=== PATIENT | female | born 1975 | race Caucasian/White ===

== ENCOUNTER → 2018-04-15 10:58 | Outpatient (CLI) | payer OTHER, SELFPAY ==
--- NOTE | 2018-04-15 | DI.RAD.S_ITS ---
PROCEDURE: XR WRIST LT MIN 3V INDICATIONS: OTHER CLOSED FRACTURE OF DISTAL END OF LEFT RADIUS TECHNIQUE: 3 views of the wrist were acquired. COMPARISON: None. FINDINGS: Bones: No dislocations. No suspicious bony lesions. There is a comminuted dorsally angulated intra-articular fracture involving the distal radius, partially obscured by overlying splint material, and there may be an ulnar styloid process base fracture Scaphoid view: Not obtained, and the scaphoid is partially obscured by cast material Soft tissues: No suspicious soft tissue calcifications. IMPRESSION: Comminuted intra-articular impacted and dorsally angulated distal radius fracture. Probable ulnar styloid process base fracture partially obscured. Dictated by: Raymon Hunter M.D. on 04/15/2018 at 12:53 Approved by: Raymon Hunter M.D. on 04/15/2018 at 12:57
== END ==
PROVIDERS: Family Provider Family Medicine; PCP Family Medicine; Visit Provider Orthopaedic Surgery
DX: S52.572A Other intraarticular fracture of lower end of left radius, initial encounter for closed fracture (principal)
CPT/HCPCS: 73110

== ENCOUNTER → 2018-10-17 16:49 | Outpatient (CLI) | payer OTHER, MEDICAID, SELFPAY ==
[2018-10-17 17:53] LABS: Add Manual Diff / Slide Review NO; Basophils Absolute Auto 100 /uL (0-100); Basophils Percent Auto 0.7 % (0-2); Eosinophils Absolute Auto 100 /uL (0-450); Eosinophils Percent Auto 1.3 % (2-4); Hematocrit 42.6 % (36-46); Hemoglobin 14.3 g/dL (12.0-16.0); Lymphocytes Absolute Auto 3100 /uL (1100-4500); Lymphocytes Percent Auto 41.1 % (25-40); Mean Corpuscular HGB Conc 33.5 % (30-36); Mean Corpuscular Volume 89.5 fL (80-100); Monocytes Absolute Auto 600 /uL (0-900); Monocytes Percent Auto 8.1 % (3-14); Neutrophils Absolute Auto 3700 /uL (1500-7000); Neutrophils Percent Auto 48.8 % (50-75); Platelet Count 327 X10^3/uL (150-400); Red Blood Cell Count 4.75 X10^6/uL (4.0-5.2); Red Cell Distribution Width 13.1 % (11.6-14.8); White Blood Cell Count 7.6 X10^3/uL (4.5-11.0)
[2018-10-17 18:33] LABS: Alanine Aminotransferase 40 IU/L (9-52); Albumin 4.8 g/dL (3.5-5.0); Albumin Globulin Ratio 1.7 (1.0-2.8); Alkaline Phosphatase 82 U/L (38-126); Aspartate Aminotransferase 30 IU/L (14-36); Bilirubin Total 0.8 mg/dL (0.2-1.3); Blood Urea Nitrogen 19 mg/dL (7-17); Calcium 9.9 mg/dL (8.4-10.2); Carbon Dioxide 28 mmol/L (22-32); Chloride 103 mmol/L (98-107); Estimated Glomerular Filt Rate > 60.0 mL/min (>60); Globulin 2.9 g/dL (1.7-4.1); Glucose 83 mg/dL (70-100); HEMOLYSIS < 15 (0-50); Potassium 4.4 mmol/L (3.4-5.1); Sodium 140 mmol/L (137-145); Total Protein 7.7 g/dL (6.3-8.2)
[2018-10-17 19:04] LABS: Erythrocyte Sedimentation Rate 8 MM/HR (0-20); Thyroid Stimulating Hormone 1.74 uIU/mL (0.47-4.68)
== END ==
PROVIDERS: Family Provider Family Medicine; PCP Family Medicine; Visit Provider Family Medicine
DX: G43.009 Migraine without aura, not intractable, without status migrainosus (principal); M79.10 Myalgia, unspecified site; I10 Essential (primary) hypertension; R42 Dizziness and giddiness
CPT/HCPCS: 36415; 80053; 84443; 85025; 85651

== ENCOUNTER 2018-11-27 14:55 | Emergency (ER) | payer OTHER, MEDICAID, SELFPAY ==
[2018-11-27 15:01] VITALS: BP 127/85; PULSE 78; RESP 20; TEMP 36.2; O2SAT 97; BMI 34.5
--- NOTE | 2018-11-27 15:30 | DI.RAD.S_ITS ---
PROCEDURE: XR KUB INDICATIONS: abd pain, nausea / vomiting. TECHNIQUE: One view of the abdomen acquired. COMPARISON: None. FINDINGS: Surgical changes and devices: Surgical clips in the gallbladder fossa.. Bowel: There is a paucity of small bowel gas. Normal quantity of solid stool is present in the colon. Soft tissues: No suspicious abdominal calcifications. Visualized solid organ contours appear normal in size. Bones: No suspicious bony lesions. IMPRESSION: Lack of small bowel gas. No other changes to suggest acute obstruction. Cholecystectomy. Dictated by: Deepthi Garcia M.D. on 11/27/2018 at 15:47 Approved by: Deepthi Garcia M.D. on 11/27/2018 at 15:48
[2018-11-27] MEDS: SODIUM CHLORIDE 0.9% 1,000 ML 1000 ML IV ×2 (16:02→18:08)
[2018-11-27] MEDS: ONDANSETRON 4 MG/2 ML INJ IV (16:02)
[2018-11-27 16:07] LABS: Add Manual Diff / Slide Review NO; Basophils Absolute Auto 100 /uL (0-100); Basophils Percent Auto 1.1 % (0-2); Eosinophils Absolute Auto 100 /uL (0-450); Eosinophils Percent Auto 1.1 % (2-4); Hematocrit 39.9 % (36-46); Hemoglobin 13.6 g/dL (12.0-16.0); Lymphocytes Absolute Auto 3100 /uL (1100-4500); Lymphocytes Percent Auto 28.6 % (25-40); Mean Corpuscular HGB Conc 34.2 % (30-36); Mean Corpuscular Hemoglobin 30.3 PG (26-34); Mean Corpuscular Volume 88.7 fL (80-100); Monocytes Absolute Auto 700 /uL (0-900); Monocytes Percent Auto 6.6 % (3-14); Neutrophils Absolute Auto 6800 /uL (1500-7000); Neutrophils Percent Auto 62.6 % (50-75); Platelet Count 290 X10^3/uL (150-400); Red Cell Distribution Width 13.4 % (11.6-14.8); White Blood Cell Count 10.9 X10^3/uL (4.5-11.0)
[2018-11-27 16:15] LABS: INR 0.9 (0.9-1.3); Prothrombin Time 9.7 SECONDS (10.1-12.7)
[2018-11-27 16:17] LABS: PTT Partial Thromboplastin Tim 34 SECONDS (26.4-36.2)
[2018-11-27 16:19] LABS: Alanine Aminotransferase 29 IU/L (9-52); Albumin 4.4 g/dL (3.5-5.0); Albumin Globulin Ratio 1.4 (1.0-2.8); Alkaline Phosphatase 71 U/L (38-126); Aspartate Aminotransferase 24 IU/L (14-36); Bilirubin Total 0.4 mg/dL (0.2-1.3); Blood Urea Nitrogen 14 mg/dL (7-17); Calcium 8.8 mg/dL (8.4-10.2); Carbon Dioxide 22 mmol/L (22-32); Chloride 107 mmol/L (98-107); Estimated Glomerular Filt Rate > 60.0 mL/min (>60); Globulin 3.1 g/dL (1.7-4.1); Glucose 82 mg/dL (70-100); HEMOLYSIS < 15 (0-50); Lipase 167 U/L (23-300); Potassium 4.4 mmol/L (3.4-5.1); Sodium 140 mmol/L (137-145); Total Protein 7.5 g/dL (6.3-8.2)
[2018-11-27 17:12] VITALS: BP 130/79; PULSE 70; O2SAT 96
[2018-11-27 17:45] LABS: Amorphous Sediment Urine 1+; Bacteria Urine Occasional (0-1); Culture Indicated Urine Cult Not Indicated; Mucus Urine 1+ (Negative); RBC Urine 1-5/HPF (0-5/HPF); Squamous Epithelial Cell Urine 5-10 /HPF (0-5/HPF); WBC Urine 1-5/HPF (0-5/HPF)
--- NOTE | 2018-11-27 17:52 | DI.CT.S_ITS ---
PROCEDURE: CT ABDOMEN PELVIS W CON INDICATIONS: RLQ abdominal pain TECHNIQUE: After the administration of intravenous contrast, 5 mm thick sections acquired from the diaphragm to the symphysis. 5 mm coronal and sagittal reformats were acquired. For radiation dose reduction, the following was used: automated exposure control, adjustment of mA and/or kV according to patient size. COMPARISON: [facility], CT, KIDNEY/ URETER/BLADDER, 01/31/2017, 14:21. FINDINGS: Image quality: Excellent. ABDOMEN: Lung bases: There are small pulmonary nodules in the lung bases, including a 2 mm nodule in the right lower lobe on series 5 image 5 and a 3 mm nodule in the left lower lobe on image 8. These appear stable compared to the prior study. Heart size is normal. There is a small hiatal hernia. Solid organs: There is mild heterogeneous attenuation of the liver consistent with fatty infiltration. The gallbladder is surgically absent. Biliary system is non dilated. Pancreas enhances normally. Spleen is normal in size and enhancement. No adrenal nodules. Kidneys demonstrate normal size and enhancement, without hydronephrosis. Peritoneum and bowel: Bowel loops demonstrate normal wall thickness and caliber. The appendix is normal in appearance. There is colonic diverticulosis without acute diverticulitis. There is a small amount of free fluid in the pelvis which appears within physiologic limits. Nodes and vessels: No retroperitoneal or mesenteric adenopathy by size criteria. Aorta and inferior vena cava are normal in size. Miscellaneous: No ventral hernias. PELVIS: Genitourinary: Bladder wall thickness is normal. The ovaries appear within normal size limits. There is a small peripherally enhancing cyst in the right ovary measuring approximately 1.2 cm likely representing a corpus luteal cyst. The uterus is surgically absent. Miscellaneous: No inguinal hernias or adenopathy. Bones: No suspicious bony lesions. No vertebral body compression fractures. IMPRESSION: 1. No evidence of appendicitis. 2. Colonic diverticulosis without acute diverticulitis. 3. Small peripherally enhancing structure in the right ovary likely representing a corpus luteal cyst. Dictated by: Jose A Tsang M.D. on 11/27/2018 at 18:53 Approved by: Jose A Tsang M.D. on 11/27/2018 at 19:01
--- NOTE | 2018-11-27 17:55 | ED.ABDPAIN ---
HPI - Abdominal Pain General Chief Complaint: Abdominal Pain Stated Complaint: nauseous x 5 days Time Seen by Provider: 11/27/18 17:21 Source: patient Mode of arrival: ambulatory Limitations: no limitations History of Present Illness HPI narrative: A 43-year-old female comes to the emergency department with complaint of abdominal pain, nausea and vomiting intermittently. Patient states she has also been constipated. She did have a bowel movement today it has been sort of small and whitish in color. Patient states that she has not had any fevers or chills. She describes pain all over but mostly on the left side. She has had some urinary frequency and dysuria. She denies any similar symptoms in the past. She went for follow-up for orthopedic care today and was told she should come get all her symptoms checked out. Patient has had a cholecystectomy as well as hysterectomy. She is she has also had surgery on her left wrist. She takes sertraline and gabapentin daily as well as lorazepam as needed. Related Data Home Medications Medication Instructions Recorded Confirmed gabapentin [Neurontin] 600 mg PO BID #0 12/10/12 11/27/18 albuterol sulfate 1 inh INHALATION PRN PRN 11/27/18 11/27/18 lorazepam 0.5 mg PO BID PRN 11/27/18 11/27/18 naproxen 500 mg PO DAILY PRN 11/27/18 11/27/18 sertraline 25 mg PO QPM 11/27/18 11/27/18 sumatriptan succinate 25 mg PO PRN PRN MDD 50 mg 11/27/18 11/27/18 Previous Rx's Medication Instructions Recorded ondansetron HCl [Zofran] 4 mg PO QID PRN #10 tab 11/27/18 Allergies Allergy/AdvReac Type Severity Reaction Status Date / Time morphine [MORPHINE] Allergy Unknown Verified 11/27/18 16:02 Review of Systems Review of Systems ROS Unobtainable: All systems reviewed & are unremarkable except as noted in HPI and below Constitutional Denies chills, Denies fever(s), Denies lethargy and Denies weakness Cardiovascular Denies chest pain, Denies diaphoresis, Denies syncope, Denies lightheadedness, Denies dyspnea and Denies dyspnea on exertion Respiratory Denies change in phlegm color, Denies chest congestion, Denies cough, Denies dyspnea, Denies dyspnea on exertion and Denies wheezing Gastrointestinal Gastrointestinal: Reports abdominal pain, Denies melena, Denies hematochezia, Denies change in bowel habits, Denies diarrhea, Reports nausea, Reports vomiting and Reports other (whitish stool) Genitourinary Denies abnormal vaginal bleeding, Denies hematuria, Reports urinary frequency, Reports dysuria, Denies flank pain, Denies urinary incontinence, Reports urinary urgency, Denies vaginal discharge and Denies vaginal odor Musculoskeletal Denies back pain Integumentary/Breasts Denies rash Neurologic Denies syncope and Denies weakness Allergic/Immunologic Denies wheezing [facility] Medical History (Updated 11/27/18 @ 19:18 by Stephanie Jimenez DO) H/O: hysterectomy (Chronic) Surgical History (Updated 11/27/18 @ 18:33 by Stephanie Jimenez DO) Hx of cholecystectomy (Chronic) Status post vaginal hysterectomy Social History (Updated 11/27/18 @ 18:33 by Stephanie Jimenez DO) alcohol intake: current substance use type: marijuana Social History (Updated 11/27/18 @ 18:33 by Stephanie Jimenez DO) alcohol intake: current substance use type: marijuana Exam Narrative Exam Narrative: GENERAL: Alert and oriented x three, moderately obese, well-appearing female in mild distress. HEENT: Head normocephalic, atraumatic, EOMI, pupils reactive, face symmetric, moist mucous membranes NECK: Supple, full range of motion CARDIOVASCULAR: Regular rate and rhythm without murmurs, rubs or gallops. RESPIRATORY: Breath sounds equal bilaterally, no wheezes rales or rhonchi. ABDOMEN: Soft, generalized tenderness greatest at the right lower quadrant. Normoactive bowel sounds all 4 quadrants. No guarding, positive rebound, no rigidity, no mass. : No CVA tenderness EXTREMITIES: Normal range of motion, no clubbing or edema. Neurovascularly intact NEUROLOGICAL: Cranial nerves II through XII grossly intact. Moving all extremities SKIN: Warm, dry, no petechiae, no rashes or lesions. Initial Vital Signs Initial Vital Signs: Vital Signs Temperature 97.2 F L 11/27/18 15:01 Pulse Rate 78 11/27/18 15:01 Respiratory Rate 20 11/27/18 15:01 Blood Pressure 127/85 11/27/18 15:01 Pulse Oximetry 97 11/27/18 15:01 Course Orders Ordered: ED Orders 11/27/18 15:30 XR KUB Stat 11/27/18 15:55 Complete Blood Count AUTO DIFF Stat Comprehensive Metabolic Panel Stat Lipase Stat Partial Thromboplastin Time Stat Prothrombin Time INR Stat 11/27/18 17:00 Urine Microscopic Stat 11/27/18 17:52 CT abdomen pelvis w con Stat Discontinued Medications Sodium Chloride (Normal Saline 0.9%) 1,000 mls @ 1,000 mls/hr IV BOLUS ONE Stop: 11/27/18 16:29 Last Infusion: 11/27/18 17:05 Dose: 0 mls/hr Admin: 11/27/18 16:02 Dose: 1,000 mls/hr Sodium Chloride (Normal Saline 0.9%) 1,000 mls @ 1,000 mls/hr IV BOLUS ONE Stop: 11/27/18 18:51 Last Admin: 11/27/18 18:08 Dose: 1,000 mls/hr Ketorolac Tromethamine (Toradol) 30 mg IV NOW ONE Stop: 11/27/18 17:53 Last Admin: 11/27/18 18:08 Dose: 30 mg Ondansetron HCl (Zofran) 4 mg IV NOW ONE Stop: 11/27/18 15:27 Last Admin: 11/27/18 16:02 Dose: 4 mg Vital Signs - 8 hr 11/27/18 15:01 11/27/18 17:12 Temperature 97.2 F L Pulse Rate 78 70 Respiratory Rate 20 Blood Pressure 127/85 Blood Pressure [Right Wrist] 130/79 Pulse Oximetry 97 96 MDM - Abdominal Pain Lab Data Attestation: I reviewed the patient's lab results. Result diagrams: 11/27/18 15:55 11/27/18 15:55 Lab Results 11/27/18 11/27/18 11/27/18 Range/Units 15:55 15:55 15:55 WBC 10.9 (4.5-11.0) X10^3/uL RBC 4.50 (4.0-5.2) X10^6/uL Hgb 13.6 (12.0-16.0) g/dL Hct 39.9 (36-46) % MCV 88.7 (80-100) fL MCH 30.3 (26-34) PG MCHC 34.2 (30-36) % RDW 13.4 (11.6-14.8) % Plt Count 290 (150-400) X10^3/uL Neut % (Auto) 62.6 (50-75) % Lymph % (Auto) 28.6 (25-40) % [place] % (Auto) 6.6 (3-14) % Eos % (Auto) 1.1 L (2-4) % Baso % (Auto) 1.1 (0-2) % Neut # (Auto) 6800 (9826-6436) /uL Lymph # (Auto) 3100 (1219-0237) /uL [place] # (Auto) 700 (0-900) /uL Eos # (Auto) 100 (0-450) /uL Baso # (Auto) 100 (0-100) /uL PT 9.7 L (10.1-12.7) SECONDS INR 0.9 (0.9-1.3) APTT 34 (26.4-36.2) SECONDS Sodium 140 (137-145) mmol/L Potassium 4.4 (3.4-5.1) mmol/L Chloride 107 (98-107) mmol/L Carbon Dioxide 22 (22-32) mmol/L BUN 14 (7-17) mg/dL Creatinine 0.70 (0.52-1.04) mg/dL Estimated GFR > 60.0 (>60) mL/min BUN/Creatinine Ratio 20.0 (6-22) Glucose 82 (70-100) mg/dL Calcium 8.8 (8.4-10.2) mg/dL Total Bilirubin 0.4 (0.2-1.3) mg/dL AST 24 (14-36) IU/L ALT 29 (9-52) IU/L Alkaline Phosphatase 71 (38-126) U/L Total Protein 7.5 (6.3-8.2) g/dL Albumin 4.4 (3.5-5.0) g/dL Globulin 3.1 (1.7-4.1) g/dL Albumin/Globulin Ratio 1.4 (1.0-2.8) Lipase 167 (23-300) U/L Urine RBC (0-5/HPF) Urine WBC (0-5/HPF) Ur Squamous Epith Cells (0-5/HPF) Amorphous Sediment Urine Bacteria (None) Urine Mucus (Negative) Ur Culture Indicated? 11/27/18 Range/Units 17:00 WBC (4.5-11.0) X10^3/uL RBC (4.0-5.2) X10^6/uL Hgb (12.0-16.0) g/dL Hct (36-46) % MCV (80-100) fL MCH (26-34) PG MCHC (30-36) % RDW (11.6-14.8) % Plt Count (150-400) X10^3/uL Neut % (Auto) (50-75) % Lymph % (Auto) (25-40) % [place] % (Auto) (3-14) % Eos % (Auto) (2-4) % Baso % (Auto) (0-2) % Neut # (Auto) (4977-4361) /uL Lymph # (Auto) (0026-0692) /uL [place] # (Auto) (0-900) /uL Eos # (Auto) (0-450) /uL Baso # (Auto) (0-100) /uL PT (10.1-12.7) SECONDS INR (0.9-1.3) APTT (26.4-36.2) SECONDS Sodium (137-145) mmol/L Potassium (3.4-5.1) mmol/L Chloride (98-107) mmol/L Carbon Dioxide (22-32) mmol/L BUN (7-17) mg/dL Creatinine (0.52-1.04) mg/dL Estimated GFR (>60) mL/min BUN/Creatinine Ratio (6-22) Glucose (70-100) mg/dL Calcium (8.4-10.2) mg/dL Total Bilirubin (0.2-1.3) mg/dL AST (14-36) IU/L ALT (9-52) IU/L Alkaline Phosphatase (38-126) U/L Total Protein (6.3-8.2) g/dL Albumin (3.5-5.0) g/dL Globulin (1.7-4.1) g/dL Albumin/Globulin Ratio (1.0-2.8) Lipase (23-300) U/L Urine RBC 1-5/hpf (0-5/HPF) Urine WBC 1-5/hpf (0-5/HPF) Ur Squamous Epith Cells 5-10 /hpf H (0-5/HPF) Amorphous Sediment 1+ Urine Bacteria Occasional (0-1) (None) Urine Mucus 1+ H (Negative) Ur Culture Indicated? Cult not indicated Point of care testing: Urine Dip Bedside Urine Glucose Negative Bedside Urine Bilirubin - Negative Bedside Urine Ketone - Negative Urine Specific Oak[place] 1.025 Bedside Urine Occult Blood +++ Bedside Urine pH 6.0 Bedside Urine Protein - Negative Bedside Urine Urobilinogen - Negative Bedside Urine Nitrite - Negative Bedside Urine Leukocytes - Negative Esterase Imaging Data CT scan - abdomen: Radiologist's impression: [address] [address] [address] Scan Report Signed Patient: Tracy Mancini OMR#: [id number] : 1975Acct:[id number] Age/Sex: 43 / FDate of Service: 11/27/18 Loc: ED Accession Number: [id number] Procedure: CT abdomen pelvis w con Ordering Provider: Stephanie Jimenez D.O. PROCEDURE: CT ABDOMEN PELVIS W CON INDICATIONS: RLQ abdominal pain TECHNIQUE: After the administration of intravenous contrast, 5 mm thick sections acquired from the diaphragm to the symphysis. 5 mm coronal and sagittal reformats were acquired. For radiation dose reduction, the following was used: automated exposure control, adjustment of mA and/or kV according to patient size. COMPARISON: [facility], CT, KIDNEY/ URETER/BLADDER, 01/31/2017, 14:21. FINDINGS: Image quality: Excellent. ABDOMEN: Lung bases: There are small pulmonary nodules in the lung bases, including a 2 mm nodule in the right lower lobe on series 5 image 5 and a 3 mm nodule in the left lower lobe on image 8. These appear stable compared to the prior study. Heart size is normal. There is a small hiatal hernia. Solid organs: There is mild heterogeneous attenuation of the liver consistent with fatty infiltration. The gallbladder is surgically absent. Biliary system is non dilated. Pancreas enhances normally. Spleen is normal in size and enhancement. No adrenal nodules. Kidneys demonstrate normal size and enhancement, without hydronephrosis. Peritoneum and bowel: Bowel loops demonstrate normal wall thickness and caliber. The appendix is normal in appearance. There is colonic diverticulosis without acute diverticulitis. There is a small amount of free fluid in the pelvis which appears within physiologic limits. Nodes and vessels: No retroperitoneal or mesenteric adenopathy by size criteria. Aorta and inferior vena cava are normal in size. Miscellaneous: No ventral hernias. PELVIS: Genitourinary: Bladder wall thickness is normal. The ovaries appear within normal size limits. There is a small peripherally enhancing cyst in the right ovary measuring approximately 1.2 cm likely representing a corpus luteal cyst. The uterus is surgically absent. Miscellaneous: No inguinal hernias or adenopathy. Bones: No suspicious bony lesions. No vertebral body compression fractures. IMPRESSION: 1. No evidence of appendicitis. 2. Colonic diverticulosis without acute diverticulitis. 3. Small peripherally enhancing structure in the right ovary likely representing a corpus luteal cyst. Dictated by: Jose A Tsang M.D. on 11/27/2018 at 18:53 Approved by: Jose A Tsang M.D. on 11/27/2018 at 19:01 KUB xray: Radiologist's impression: [address] [address] XRay Report Signed Patient: Tracy Mancini OMR#: [id number] : 1975Acct:[id number] Age/Sex: 43 / FDate of Service: 11/27/18 Loc: ED Accession Number: [id number] Procedure: XR KUB Ordering Provider: Stephanie Jimenez D.O. PROCEDURE: XR KUB INDICATIONS: abd pain, nausea / vomiting. TECHNIQUE: One view of the abdomen acquired. COMPARISON: None. FINDINGS: Surgical changes and devices: Surgical clips in the gallbladder fossa.. Bowel: There is a paucity of small bowel gas. Normal quantity of solid stool is present in the colon. Soft tissues: No suspicious abdominal calcifications. Visualized solid organ contours appear normal in size. Bones: No suspicious bony lesions. IMPRESSION: Lack of small bowel gas. No other changes to suggest acute obstruction. Cholecystectomy. Dictated by: Deepthi Garcia M.D. on 11/27/2018 at 15:47 Approved by: Deepthi Garcia M.D. on 11/27/2018 at 15:48 MDM Narrative Medical decision making narrative: 43-year-old female comes in with complaint of abdominal pain she is most tender on her right lower quadrant on exam. The patient has generalized abdominal pain and complains more of left-sided pain feel this warrants CT scanning. Initial x-ray was negative other than decrease and small bowel gas. She had Zofran which helped her nausea. She is given Toradol. Her lab work does not show major changes. She does have some hematuria potentially she could have a kidney stone. There is a right ovarian cyst 1.2 cm. There is a little bit of free fluid which appears within physiologic limits. Fatty infiltration of the liver. Appendix is noted normal on imaging. We discussed possible causes including possibly hyper emesis as she does smoke marijuana, and that she needs further workup if her symptoms continue. Discharge Plan Departure Patient Disposition: Home Clinical Impression: Abdominal pain, Cyst of right ovary Instructions: DI for Abdominal Pain-Adult Activity Restrictions/Additional Instructions: Follow-up with primary care in the next 2-3 days for recheck. Continue home medications as prescribed. May take Zofran 4mg every 6 hours as needed for nausea. Your prescription was sent to [facility]. Return to the emergency department for fevers greater than 100.4 F, worsening abdominal pain, persistent vomiting black or bloody stools, if your not having any bowel movements, lightheadedness, passing out, or other new or concerning changes. Prescriptions: New ondansetron HCl [Zofran] 4 mg tablet 4 mg PO QID PRN (Reason: nausea and vomiting) Qty: 10 RF: 0 No Action gabapentin [Neurontin] 300 MG capsule 600 mg PO BID Qty: 0 RF: 0 sumatriptan succinate 25 mg tablet 25 mg PO PRN MDD 50 mg PRN (Reason: Migraine Headache) RF: 0 lorazepam 0.5 mg tablet 0.5 mg PO BID PRN (Reason: Anxiety) RF: 0 sertraline 25 mg tablet 25 mg PO QPM RF: 0 naproxen 500 mg tablet 500 mg PO DAILY PRN (Reason: PAIN) RF: 0 albuterol sulfate 90 mcg/actuation Aerosol Powdr Breath Activated 1 inh INHALATION PRN PRN (Reason: Shortness Of Breath) RF: 0 Referrals: Don Fernandez MD [Primary Care Provider] -
[2018-11-27] MEDS: KETOROLAC 60 MG/2 ML VIAL 30 MG IV (18:08)
[2018-11-27 19:34] VITALS: BP 139/97; PULSE 74; RESP 18; O2SAT 99
== END 2018-11-27 19:27 | disposition home or self-care (01) ==
PROVIDERS: Emergency Provider Emergency Medicine; Family Provider Family Medicine; PCP Family Medicine
DX: R10.9 Unspecified abdominal pain (principal); N83.201 Unspecified ovarian cyst, right side
CPT/HCPCS: 36591; 74018; 74177; 80053; 81003; 81015; 83690; 85025; 85610; 85730; 96361; 96374; 96375; 99283; 99284; J1885; J2405; Q9967

== ENCOUNTER → 2018-12-05 16:53 | Outpatient (CLI) | payer OTHER, MEDICAID, SELFPAY ==
[2018-12-05 17:31] LABS: Add Manual Diff / Slide Review NO; Basophils Absolute Auto 100 /uL (0-100); Basophils Percent Auto 0.6 % (0-2); Eosinophils Absolute Auto 100 /uL (0-450); Eosinophils Percent Auto 1.2 % (2-4); Hematocrit 41.1 % (36-46); Hemoglobin 13.8 g/dL (12.0-16.0); Lymphocytes Absolute Auto 2800 /uL (1100-4500); Lymphocytes Percent Auto 31.7 % (25-40); Mean Corpuscular HGB Conc 33.6 % (30-36); Mean Corpuscular Volume 89.1 fL (80-100); Monocytes Absolute Auto 600 /uL (0-900); Monocytes Percent Auto 6.6 % (3-14); Neutrophils Absolute Auto 5400 /uL (1500-7000); Neutrophils Percent Auto 59.9 % (50-75); Platelet Count 302 X10^3/uL (150-400); Red Blood Cell Count 4.61 X10^6/uL (4.0-5.2); Red Cell Distribution Width 12.8 % (11.6-14.8)
[2018-12-05 17:55] LABS: Alanine Aminotransferase 39 IU/L (9-52); Albumin 4.5 g/dL (3.5-5.0); Albumin Globulin Ratio 1.6 (1.0-2.8); Alkaline Phosphatase 79 U/L (38-126); Aspartate Aminotransferase 26 IU/L (14-36); Bilirubin Total 0.6 mg/dL (0.2-1.3); Blood Urea Nitrogen 12 mg/dL (7-17); Calcium 9.8 mg/dL (8.4-10.2); Carbon Dioxide 29 mmol/L (22-32); Chloride 100 mmol/L (98-107); Estimated Glomerular Filt Rate > 60.0 mL/min (>60); Globulin 2.9 g/dL (1.7-4.1); Glucose 87 mg/dL (70-100); HEMOLYSIS < 15 (0-50); Lipase 186 U/L (23-300); Potassium 4.4 mmol/L (3.4-5.1); Sodium 137 mmol/L (137-145); Total Protein 7.4 g/dL (6.3-8.2)
== END ==
PROVIDERS: Family Provider Family Medicine; PCP Family Medicine; Visit Provider Family Medicine
DX: R10.9 Unspecified abdominal pain (principal)
CPT/HCPCS: 36415; 80053; 83690; 85025; 87086

== ENCOUNTER 2019-02-15 00:07 | Emergency (ER) | payer OTHER, MEDICAID, SELFPAY ==
[2019-02-15 00:25] VITALS: BP 151/100; PULSE 120; RESP 16; TEMP 36.8; O2SAT 95
[2019-02-15] MEDS: METOCLOPRAMIDE 10 MG/2 ML INJ IV (00:30)
[2019-02-15] MEDS: PANTOPRAZOLE 40 MG VIAL IV (00:30)
[2019-02-15] MEDS: SODIUM CHLORIDE 0.9% 1,000 ML 1000 ML IV (00:34)
[2019-02-15 00:37] LABS: Add Manual Diff / Slide Review NO; Basophils Absolute Auto 100 /uL (0-100); Basophils Percent Auto 1.1 % (0-2); Eosinophils Absolute Auto 100 /uL (0-450); Eosinophils Percent Auto 1.2 % (2-4); Hematocrit 39.2 % (36-46); Hemoglobin 13.5 g/dL (12.0-16.0); Lymphocytes Absolute Auto 3700 /uL (1100-4500); Lymphocytes Percent Auto 38.9 % (25-40); Mean Corpuscular HGB Conc 34.3 % (30-36); Mean Corpuscular Hemoglobin 30.1 PG (26-34); Mean Corpuscular Volume 87.8 fL (80-100); Monocytes Absolute Auto 700 /uL (0-900); Monocytes Percent Auto 6.9 % (3-14); Neutrophils Absolute Auto 4900 /uL (1500-7000); Neutrophils Percent Auto 51.9 % (50-75); Platelet Count 291 X10^3/uL (150-400); Red Blood Cell Count 4.47 X10^6/uL (4.0-5.2); Red Cell Distribution Width 13.9 % (11.6-14.8); White Blood Cell Count 9.5 X10^3/uL (4.5-11.0)
--- NOTE | 2019-02-15 00:49 | PC.NURSE ---
Upon entering room patient crying out, very restless in bed. Patient appears very anxious and jumpy holding hand out in front of face I feel like I have been drugged, something is wrong Patient reports she went out to eat at [facility] and then had a drink at the [place]. Patient states she did leave her drink unattended. Patient very tearful.
--- NOTE | 2019-02-15 01:05 | ED_ITS ---
HPI - Abdominal Pain General Chief Complaint: Abdominal Pain Stated Complaint: vomiting Time Seen by Provider: 02/15/19 00:11 Source: patient Mode of arrival: EMS Limitations: no limitations History of Present Illness HPI narrative: 44-year-old female former smoker with episodes of what sound like persistent and intractable vomiting not unlike cyclic vomiting presents with sudden onset nausea, vomiting and generalized abdominal pain about 1 hour prior to arrival. She denies provocation, palliation or radiation. She is not dizzy nor weak or lightheaded. She denies recent antibiotics, exposure to ill persons, bad food or recent travel. She denies any change in bowel habits such as constipation or diarrhea. She has had no dysuria, frequency or urgency. She was given 4 mg of Zofran orally by EMS and once IV was placed another 4 mg by the at the. MD complaint: abdominal pain Onset (ago): hour(s) Pain Consistency: constant Location: diffuse Severity: moderate Quality: cramping and aching Radiation: none Migration to: no migration Relieving factors: nothing Exacerbating factors: nothing Associated symptoms: nausea and vomiting Related Data Home Medications Medication Instructions Recorded Confirmed gabapentin [Neurontin] 600 mg PO BID #0 12/10/12 11/27/18 albuterol sulfate 1 inh INHALATION PRN PRN 11/27/18 11/27/18 lorazepam 0.5 mg PO BID PRN 11/27/18 11/27/18 naproxen 500 mg PO DAILY PRN 11/27/18 11/27/18 sertraline 25 mg PO QPM 11/27/18 11/27/18 sumatriptan succinate 25 mg PO PRN PRN MDD 50 mg 11/27/18 11/27/18 Previous Rx's Medication Instructions Recorded ondansetron HCl [Zofran] 4 mg PO QID PRN #10 tab 11/27/18 Allergies Allergy/AdvReac Type Severity Reaction Status Date / Time morphine [MORPHINE] Allergy Unknown Verified 11/27/18 16:02 Review of Systems Constitutional Constitutional: Denies chills, Denies fatigue, Denies fever(s), Denies frequent falls, Denies lethargy and Denies weakness Eyes Eyes: Denies change in vision, Denies eye discharge, Denies irritation and Denies loss of vision ENT Ears, Nose, Mouth, and Throat: Denies change in voice, Denies dizziness, Denies neck pain, Denies sore throat and Denies throat swelling Cardiovascular Cardiovascular: Denies chest pain, Denies irregular heart rhythm, Denies lightheadedness, Denies palpitations, Denies dyspnea, Denies dyspnea on exertion and Denies orthopnea Respiratory Respiratory: Denies cough, Denies dyspnea, Denies dyspnea on exertion and Denies wheezing Gastrointestinal Gastrointestinal: Reports abdominal pain, Denies change in bowel habits, Denies diarrhea, Reports nausea and Reports vomiting Genitourinary Genitourinary: Denies hematuria, Denies flank pain, Denies urinary incontinence and Denies urinary urgency Musculoskeletal Musculoskeletal: Denies back pain, Denies muscle weakness, Denies neck pain, Denies numbness and Denies tingling Integumentary/Breasts Skin/Breast: Denies pruritus, Denies erythema, Denies rash and Denies wounds Neurologic Neurologic: Denies behavioral changes, Denies confusion, Denies dizziness, D enies frequent falls, Denies loss of vision, Denies numbness, Denies tingling and Denies weakness Psychiatric Psychiatric: Denies anxiety, Denies behavioral changes, Denies confusion, Denies depression, Denies homicidal ideation and Denies suicidal ideation Endocrine Endocrine: Denies fatigue, Denies flushing and Denies palpitations Hematologic/Lymphatic Hematologic/Lymphatic: Denies easy bruising Allergic/Immunologic Allergic/Immunologic: Denies urticaria, Denies throat swelling and Denies wheezing PFSH Medical History (Updated 02/15/19 @ 03:02 by Steve Crystal DO) H/O: hysterectomy (Chronic) Surgical History (Updated 11/27/18 @ 18:33 by Stephanie Jimenez DO) Hx of cholecystectomy (Chronic) Status post vaginal hysterectomy Social History (Updated 11/27/18 @ 18:33 by Stephanie Jimenez DO) Smoking Status: Former smoker alcohol intake: current substance use type: marijuana Social History (Updated 11/27/18 @ 18:33 by Stephanie Jimenez DO) Smoking Status: Former smoker alcohol intake: current substance use type: marijuana Exam Narrative Exam Narrative: GENERAL: [44] year old patient appears stated age. Well- nourished, well-developed patient, in mild distress. Crying, holding an emesis bag HEAD: Atraumatic. Normocephalic. EYES: Pupils equal round and reactive. Extraocular motions intact. No scleral icterus. No injection or drainage. ENT: Nose without bleeding, purulent drainage. Throat without erythema, tonsillar hypertrophy or exudate. Airway patent. NECK: Trachea midline. Non tender CARDIOVASCULAR: Regular rate and rhythm without murmurs, gallops, or rubs. RESPIRATORY: Clear to auscultation. Breath sounds equal bilaterally. No wheezes, rales, or rhonchi. GASTROINTESTINAL: Abdomen soft, generalized tenderness, nondistended. EXTREMITIES: No edema or joint tenderness. BACK: Nontender without deformity or crepitance. No flank tenderness. NEURO: AOx3. SKIN: No rash or erythema of visible areas Initial Vital Signs Initial Vital Signs: Vital Signs Temperature 98.3 F 02/15/19 00:25 Pulse Rate 120 H 02/15/19 00:25 Respiratory Rate 16 02/15/19 00:25 Blood Pressure 151/100 H 02/15/19 00:25 Pulse Oximetry 95 02/15/19 00:25 Course Course Course Narrative: Patient has a near complete resolution of symptoms after the above-stated therapies and refuses any imaging. She has been given return precautions and understands that without imaging we run the risk of missing a diagnosis. She accepts the risk despite discussion Orders Ordered: ED Orders 02/15/19 00:25 Complete Blood Count AUTO DIFF Stat Comprehensive Metabolic Panel Stat Lipase Stat 02/15/19 00:45 Urinalysis and Microscopic Stat Urine Culture Stat urine tox [Urine Drug Screen, Rapid] Stat Discontinued Medications Sodium Chloride (Normal Saline 0.9%) 1,000 mls @ 1,000 mls/hr IV BOLUS ONE Stop: 02/15/19 01:10 Last Infusion: 02/15/19 02:30 Dose: 0 mls/hr Documented by: Admin: 02/15/19 00:34 Dose: 1,000 mls/hr Documented by: LELO Metoclopramide HCl (Reglan) 10 mg IV NOW ONE Stop: 02/15/19 00:12 Last Admin: 02/15/19 00:30 Dose: 10 mg Documented by: LELO Pantoprazole Sodium (Protonix) 40 mg IV NOW ONE Stop: 02/15/19 00:12 Last Admin: 02/15/19 00:30 Dose: 40 mg Documented by: LELO Vital Signs Vital signs: Vital Signs - 8 hr 02/15/19 00:25 02/15/19 03:26 Temperature 98.3 F Pulse Rate 120 H 74 Respiratory Rate 16 18 Blood Pressure [Right Arm] 151/100 H 116/63 Pulse Oximetry 95 98 MDM - Abdominal Pain Lab Data Result diagrams: 02/15/19 00:25 02/15/19 00:25 Labs: Lab Results 02/15/19 02/15/19 02/15/19 Range/Units 00:25 00:25 00:45 WBC 9.5 (4.5-11.0) X10^3/uL RBC 4.47 (4.0-5.2) X10^6/uL Hgb 13.5 (12.0-16.0) g/dL Hct 39.2 (36-46) % MCV 87.8 (80-100) fL MCH 30.1 (26-34) PG MCHC 34.3 (30-36) % RDW 13.9 (11.6-14.8) % Plt Count 291 (150-400) X10^3/uL Neut % (Auto) 51.9 (50-75) % Lymph % (Auto) 38.9 (25-40) % [place] % (Auto) 6.9 (3-14) % Eos % (Auto) 1.2 L (2-4) % Baso % (Auto) 1.1 (0-2) % Neut # (Auto) 4900 (2928-3185) /uL Lymph # (Auto) 3700 (3035-3130) /uL [place] # (Auto) 700 (0-900) /uL Eos # (Auto) 100 (0-450) /uL Baso # (Auto) 100 (0-100) /uL Sodium 139 (137-145) mmol/L Potassium 4.3 (3.4-5.1) mmol/L Chloride 102 (98-107) mmol/L Carbon Dioxide 24 (22-32) mmol/L BUN 13 (7-17) mg/dL Creatinine 1.00 (0.52-1.04) mg/dL Estimated GFR > 60.0 (>60) mL/min BUN/Creatinine Ratio 13.0 (6-22) Glucose 120 H (70-100) mg/dL Calcium 9.3 (8.4-10.2) mg/dL Total Bilirubin 0.4 (0.2-1.3) mg/dL AST 38 H (14-36) IU/L ALT 30 (9-52) IU/L Alkaline Phosphatase 69 (38-126) U/L Total Protein 7.3 (6.3-8.2) g/dL Albumin 4.3 (3.5-5.0) g/dL Globulin 3.0 (1.7-4.1) g/dL Albumin/Globulin Ratio 1.4 (1.0-2.8) Lipase 138 (23-300) U/L Urine Color Urine Appearance Urine pH (4.5-8.0) Ur Specific [place] (1.000-1.035) Urine Protein (Negative) Urine Glucose (UA) (Negative) g/dL Urine Ketones (NEGATIVE) Urine Occult Blood (Negative) Urine Nitrate (Negative) Urine Bilirubin (NEGATIVE) Urine Urobilinogen (0.2) E.U./dL Ur Leukocyte Esterase (NEGATIVE) Urine RBC (0-5/HPF) Urine WBC (0-5/HPF) Ur Squamous Epith Cells (0-5/HPF) Calcium Oxalate Crystal Urine Bacteria (None) Ur Culture Indicated? Micro UA Comment Urine Opiates Screen Negative (Negative) POC Urine Buprenorphine Negative (Negative) U Morph 300 ng/mL cutoff Negative (Negative) Ur Oxycodone Screen Negative (Negative) Urine Methadone Screen Negative (Negative) Ur Barbiturates Screen Negative (Negative) U Tricyclic Antidepress Negative (Negative) Ur Phencyclidine Scrn Negative (Negative) Ur Amphetamines Screen Negative (Negative) U Methamphetamines Scrn Negative (Negative) Ur MDMA Scrn (Ecstasy) Negative (Negative) U Benzodiazepines Scrn Negative (Negative) Urine Cocaine Screen Negative (Negative) U Marijuana (THC) Screen Positive H (Negative) 02/15/19 Range/Units 00:45 WBC (4.5-11.0) X10^3/uL RBC (4.0-5.2) X10^6/uL Hgb (12.0-16.0) g/dL Hct (36-46) % MCV (80-100) fL MCH (26-34) PG MCHC (30-36) % RDW (11.6-14.8) % Plt Count (150-400) X10^3/uL Neut % (Auto) (50-75) % Lymph % (Auto) (25-40) % [place] % (Auto) (3-14) % Eos % (Auto) (2-4) % Baso % (Auto) (0-2) % Neut # (Auto) (9185-3131) /uL Lymph # (Auto) (6157-4608) /uL [place] # (Auto) (0-900) /uL Eos # (Auto) (0-450) /uL Baso # (Auto) (0-100) /uL Sodium (137-145) mmol/L Potassium (3.4-5.1) mmol/L Chloride (98-107) mmol/L Carbon Dioxide (22-32) mmol/L BUN (7-17) mg/dL Creatinine (0.52-1.04) mg/dL Estimated GFR (>60) mL/min BUN/Creatinine Ratio (6-22) Glucose (70-100) mg/dL Calcium (8.4-10.2) mg/dL Total Bilirubin (0.2-1.3) mg/dL AST (14-36) IU/L ALT (9-52) IU/L Alkaline Phosphatase (38-126) U/L Total Protein (6.3-8.2) g/dL Albumin (3.5-5.0) g/dL Globulin (1.7-4.1) g/dL Albumin/Globulin Ratio (1.0-2.8) Lipase (23-300) U/L Urine Color Yellow Urine Appearance Clear Urine pH 6.0 (4.5-8.0) Ur Specific [place] 1.020 (1.000-1.035) Urine Protein 1+ H (Negative) Urine Glucose (UA) Negative (Negative) g/dL Urine Ketones Trace H (NEGATIVE) Urine Occult Blood 2+ H (Negative) Urine Nitrate Negative (Negative) Urine Bilirubin Negative (NEGATIVE) Urine Urobilinogen 0.2 (0.2) E.U./dL Ur Leukocyte Esterase Negative (NEGATIVE) Urine RBC 0-1/hpf (0-5/HPF) Urine WBC None seen (0-5/HPF) Ur Squamous Epith Cells 1-5 /hpf (0-5/HPF) Calcium Oxalate Crystal Many H Urine Bacteria Many (>30) H (None) Ur Culture Indicated? Specimen cultured Micro UA Comment * Urine Opiates Screen (Negative) POC Urine Buprenorphine (Negative) U Morph 300 ng/mL cutoff (Negative) Ur Oxycodone Screen (Negative) Urine Methadone Screen (Negative) Ur Barbiturates Screen (Negative) U Tricyclic Antidepress (Negative) Ur Phencyclidine Scrn (Negative) Ur Amphetamines Screen (Negative) U Methamphetamines Scrn (Negative) Ur MDMA Scrn (Ecstasy) (Negative) U Benzodiazepines Scrn (Negative) Urine Cocaine Screen (Negative) U Marijuana (THC) Screen (Negative) Discharge Plan Departure Patient Disposition: Home Clinical Impression: Abdominal pain Qualifiers: Abdominal location: generalized Qualified Code(s): R10.84 - Generalized abdominal pain Vomiting Qualifiers: Vomiting type: unspecified Vomiting Intractability: intractable Nausea presence : with nausea Qualified Code(s): R11.2 - Nausea with vomiting, unspecified Discharge Date/Time: 02/15/19 03:34 Instructions: DI for Abdominal Pain-Adult Activity Restrictions/Additional Instructions: *You have been diagnosed with [nausea vomiting and resolved abdominal pain] *What to do: *Take medications as directed *Follow up with your primary care provider in 2-3 days, call for an appointment. Let them know you were seen in the Emergency Department and that we ask that you be seen in follow up *Return to ER if you should have any new, worsening or concerning symptoms 1. Drink plenty of fluids with frequent small sips. 2. For the next 24 hours a clear liquid diet is advised. After that please employ a brat diet which would include bananas, rice, apples, toast. 3. Please take medications as directed. 4. Please follow-up with your doctor in the next 1-2 days. Call the office for an appointment. 5. Please return to the emergency Department for any worsening or persistent symptoms, such as increasing pain or fever. Prescriptions: No Action gabapentin [Neurontin] 300 MG capsule 600 mg PO BID Qty: 0 RF: 0 sumatriptan succinate 25 mg tablet 25 mg PO PRN MDD 50 mg PRN (Reason: Migraine Headache) RF: 0 lorazepam 0.5 mg tablet 0.5 mg PO BID PRN (Reason: Anxiety) RF: 0 sertraline 25 mg tablet 25 mg PO QPM RF: 0 naproxen 500 mg tablet 500 mg PO DAILY PRN (Reason: PAIN) RF: 0 albuterol sulfate 90 mcg/actuation Aerosol Powdr Breath Activated 1 inh INHALATION PRN PRN (Reason: Shortness Of Breath) RF: 0 ondansetron HCl [Zofran] 4 mg tablet 4 mg PO QID PRN (Reason: nausea and vomiting) Qty: 10 RF: 0 Referrals: Don Fernandez MD [Primary Care Provider] -
[2019-02-15 01:09] LABS: Burprenorphine Negative (Negative); UR Morphine/Opiate cutoff 300 Negative (Negative); Urine Amphetamines Negative (Negative); Urine Barbiturates Negative (Negative); Urine Benzodiazepines Negative (Negative); Urine Cocaine Negative (Negative); Urine MDMA Negative (Negative); Urine Methadone Negative (Negative); Urine Methamphetamines Negative (Negative); Urine Morphine/Opi cutoff 2000 Negative (Negative); Urine Oxycodone Negative (Negative); Urine Phencyclidine Negative (Negative); Urine Tetrahydrocannabinol Positive (Negative); Urine Tricyclic Antidepressant Negative (Negative)
[2019-02-15 01:54] LABS: Alanine Aminotransferase 30 IU/L (9-52); Albumin 4.3 g/dL (3.5-5.0); Albumin Globulin Ratio 1.4 (1.0-2.8); Alkaline Phosphatase 69 U/L (38-126); Aspartate Aminotransferase 38 IU/L (14-36); Bilirubin Total 0.4 mg/dL (0.2-1.3); Blood Urea Nitrogen 13 mg/dL (7-17); Calcium 9.3 mg/dL (8.4-10.2); Carbon Dioxide 24 mmol/L (22-32); Chloride 102 mmol/L (98-107); Estimated Glomerular Filt Rate > 60.0 mL/min (>60); Glucose 120 mg/dL (70-100); HEMOLYSIS 19 (0-50); Lipase 138 U/L (23-300); Potassium 4.3 mmol/L (3.4-5.1); Sodium 139 mmol/L (137-145); Total Protein 7.3 g/dL (6.3-8.2)
[2019-02-15 02:07] LABS: WBC Urine None Seen (0-5/HPF)
[2019-02-15 02:56] LABS: Appearance Urine UA Clear; Color Urine UA Yellow
[2019-02-15 02:57] LABS: Bilirubin Urine UA Negative (NEGATIVE); Glucose Urine UA NEGATIVE (Negative); Ketones Urine UA TRACE (NEGATIVE); Leukocyte Esterase Urine UA NEGATIVE (NEGATIVE); Nitrite Urine UA NEGATIVE (Negative); Occult Blood Urine UA 2+ (Negative); Protein Urine UA 1+ (Negative); Urobilinogen Urine UA 0.2 E.U./dL (0.2)
[2019-02-15 02:58] LABS: RBC Urine 0-1/HPF (0-5/HPF)
[2019-02-15 02:59] LABS: Bacteria Urine Many (>30); Calcium Oxalate Crystals Urine Many; Squamous Epithelial Cell Urine 1-5 /HPF (0-5/HPF)
[2019-02-15 03:00] LABS: Culture Indicated Urine Specimen Cultured
[2019-02-15 03:26] VITALS: BP 116/63; PULSE 74; RESP 18; O2SAT 98
== END 2019-02-15 03:34 | disposition home or self-care (01) ==
PROVIDERS: Emergency Provider Emergency Medicine; PCP Family Medicine
DX: R10.84 Generalized abdominal pain (principal); R11.2 Nausea with vomiting, unspecified
CPT/HCPCS: 36415; 80053; 80305; 81001; 83690; 85025; 87086; 96361; 96374; 96375; 99283; 99284; C9113; J2765

== ENCOUNTER → 2019-05-26 10:38 | Outpatient (CLI) | payer OTHER, SELFPAY ==
--- NOTE | 2019-05-26 | DI.MRI.S_ITS ---
PROCEDURE: MR WRIST LT W CON INDICATIONS: LEFT WRIST FRACTURE TECHNIQUE: After the administration of 3-4 mL of dilute intra-articular Gadolinium contrast into the radiocarpal compartment, coronal T1 spin echo with fat saturation and T2 fast spin echo with fat saturation, axial T1 spin echo and T2 fast spin echo with fat saturation, sagittal T1 spin echo with and without fat saturation through the wrist. COMPARISON: [facility], CR, XR WRIST 3+ VIEWS LEFT, 10/30/2018, 9:13. FINDINGS: Image quality: Excellent. Bones and cartilage: The carpal bones are normally aligned. No bone marrow contusions or fractures. No evidence for avascular necrosis. Overlying cartilage surfaces appear normal. Carpal ligaments: There is subtle discontinuity and contrast extension involving the bulbar portion of the scapholunate ligament suggestive of partial thickness tear involving the volar component. Central and dorsal components are intact. The lunotriquetral ligament is intact. The radioscaphocapitate and radiolunotriquetral ligaments appear intact. The arcuate ligament and short radiolunate ligament also appear normal. The dorsal intercarpal and radiotriquetral ligaments appear intact. On sagittal images, the pisohamate ligament appears intact. Triangular fibrocartilage complex: The triangular fibrocartilage disc, with its styloid and foveal lamina, appears intact. No gadolinium extravasation into the distal radioulnar joint. The adjacent meniscal homolog appears normal. The ulnar collateral ligament appears intact. The extensor carpi ulnaris tendon is normal in location and morphology. Tendons and soft tissues: The carpal tunnel structures appear normal, including the median nerve. The ulnar nerve appears normal within Guyon's canal. All six extensor tendon compartments demonstrate normal morphology, without pathologic tendon sheath fluid. No soft tissue ganglion cysts. IMPRESSION: 1. Finding is suggestive of focal perforation/partial-thickness tear involving the volar component of scapholunate ligament. No full-thickness scapholunate ligament rupture. Lunotriquetral ligament is intact. 2. No evidence of jugular fibrocartilage tear. 3. No marrow edema. No fracture or dislocation. Extensor and flexor tendons are intact. Dictated by: Jose L Dia M.D. on 05/26/2019 at 15:16 Approved by: Jose L Dia M.D. on 05/26/2019 at 15:45
--- NOTE | 2019-05-26 | DI.RAD.S_ITS ---
PROCEDURE: FL WRIST INJECTION MR, LEFT INDICATIONS: LEFT WRIST FRACTURE TECHNIQUE: After informed consent had been obtained, the wrist was examined fluoroscopically, and a site chosen for injection of the radiocarpal compartment from a dorsal approach. Skin was prepped and draped in a sterile fashion and 1% lidocaine infiltrated from the skin down to the articular surface. A hypodermic needle was then introduced into the articular space and a modest amount of contrast medium was instilled confirming intra-articular needle tip placement. This was followed by approximately 4 mL of a dilute gadolinium solution. Needle was removed and dressing was applied. The patient experienced no complications throughout the procedure and left the fluoroscopic suite in no apparent distress. FINDINGS: A single fluoroscopic spot image demonstrates intra-articular location to injected iodinated contrast. IMPRESSION: Successful fluoroscopic-guided administration of dilute Gadolinium solution for wrist MR arthrogram. Dictated by: Joao Oleary M.D. on 05/26/2019 at 19:11 Approved by: Joao Oleary M.D. on 05/26/2019 at 19:13
== END ==
PROVIDERS: Family Provider Family Medicine; PCP Family Medicine; Visit Provider Orthopaedic Surgery
DX: S52.572S Other intraarticular fracture of lower end of left radius, sequela (principal); X58.XXXS Exposure to other specified factors, sequela
CPT/HCPCS: 20605; 73222; 76000

== ENCOUNTER 2019-07-05 00:27 | Emergency (ER) | payer OTHER, MEDICAID, SELFPAY ==
[2019-07-05 00:33] VITALS: BP 129/77; PULSE 80; RESP 22; TEMP 36; O2SAT 100
--- NOTE | 2019-07-05 00:34 | ED_ITS ---
HPI - SOB/Dyspnea General Chief Complaint: Shortness of Breath/Dyspnea Stated Complaint: SOB Time Seen by Provider: 07/05/19 00:28 Source: patient and EMS Mode of arrival: EMS Limitations: no limitations History of Present Illness HPI Narrative: 44-year-old female nonsmoker with history of asthma presents by EMS for evaluation shortness of breath and anxiety that started just prior to arrival. 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 She then became very understandably upset and developed difficulty breathing and called EMS. She has had no runny nose, sore throat or cough. She denies chest pain or shortness of breath at this point time. The medics gave her some DuoNeb in route. MD Complaint: shortness of breath, asthma attack and anxiety Context: medication noncompliance and smoke/fume exposure Severity: moderate Consistency/Duration: improved Relieving factors: oxygen and bronchodilators Known history of: asthma Associated symptoms: wheezing Treatment prior to arrival: none Related Data Home oxygen amount: none Home Medications Medication Instructions Recorded Confirmed gabapentin [Neurontin] 600 mg PO BID #0 12/10/12 11/27/18 albuterol sulfate 1 inh INHALATION PRN PRN 11/27/18 11/27/18 lorazepam 0.5 mg PO BID PRN 11/27/18 11/27/18 naproxen 500 mg PO DAILY PRN 11/27/18 11/27/18 sertraline 25 mg PO QPM 11/27/18 11/27/18 sumatriptan succinate 25 mg PO PRN PRN MDD 50 mg 11/27/18 11/27/18 Previous Rx's Medication Instructions Recorded ondansetron HCl [Zofran] 4 mg PO QID PRN #10 tab 11/27/18 prednisone 20 mg PO DAILY #5 tab 07/05/19 Allergies Allergy/AdvReac Type Severity Reaction Status Date / Time morphine [MORPHINE] Allergy Unknown Verified 11/27/18 16:02 Review of Systems Constitutional Constitutional: Denies chills, Denies fatigue, Denies fever(s), Denies frequent falls, Denies lethargy and Denies weakness Eyes Eyes: Denies change in vision, Denies eye discharge, Denies irritation and Denies loss of vision ENT Ears, Nose, Mouth, and Throat: Denies change in voice, Denies dizziness, Denies neck pain, Denies sore throat and Denies throat swelling Cardiovascular Cardiovascular: Denies chest pain, Denies irregular heart rhythm, Denies lightheadedness, Denies palpitations, Reports dyspnea, Denies dyspnea on exertion and Denies orthopnea Respiratory Respiratory: Denies cough, Reports dyspnea, Denies dyspnea on exertion and Reports wheezing Gastrointestinal Gastrointestinal: Denies abdominal pain, Denies change in bowel habits, Denies diarrhea, Denies nausea and Denies vomiting Genitourinary Genitourinary: Denies hematuria, Denies flank pain, Denies urinary incontinence and Denies urinary urgency Musculoskeletal Musculoskeletal: Denies back pain, Denies muscle weakness, Denies neck pain, Denies numbness and Denies tingling Integumentary/Breasts Skin/Breast: Denies pruritus, Denies erythema, Denies rash and Denies wounds Neurologic Neurologic: Denies behavioral changes, Denies confusion, Denies dizziness, Denies frequent falls, Denies loss of vision, Denies numbness, Denies tingling and Denies weakness Psychiatric Psychiatric: Denies anxiety, Denies behavioral changes, Denies confusion, Denies depression, Denies homicidal ideation and Denies suicidal ideation Endocrine Endocrine: Denies fatigue, Denies flushing and Denies palpitations Hematologic/Lymphatic Hematologic/Lymphatic: Denies easy bruising Allergic/Immunologic Allergic/Immunologic: Denies urticaria, Denies throat swelling and Reports wheezing Patient History Surgical History (Updated 11/27/18 @ 18:33 by Stephanie Jimenez DO) H/O: hysterectomy (Chronic) Hx of cholecystectomy (Chronic) Status post vaginal hysterectomy Social History (Updated 11/27/18 @ 18:33 by Stephanie Jimenez DO) Smoking Status: Former smoker alcohol intake: current substance use type: marijuana Exam Narrative Exam Narrative: GENERAL: [44] year old patient appears stated age. Well- nourished, well-developed patient, in mild distress. HEAD: Atraumatic. Normocephalic. EYES: Pupils equal round and reactive. Extraocular motions intact. No scleral icterus. No injection or drainage. ENT: Nose without bleeding, purulent drainage. Throat without erythema, tonsillar hypertrophy or exudate. Airway patent. NECK: Trachea midline. Non tender CARDIOVASCULAR: Regular rate and rhythm without murmurs, gallops, or rubs. RESPIRATORY: Decreased breath sounds bilaterally, mild tachypnea, expiratory wheeze GASTROINTESTINAL: Abdomen soft, non-tender, nondistended. EXTREMITIES: No edema or joint tenderness. BACK: Nontender without deformity or crepitance. No flank tenderness. NEURO: AOx3. SKIN: No rash or erythema of visible areas Initial Vital Signs Initial Vital Signs: Vital Signs Temperature 96.8 F L 07/05/19 00:33 Pulse Rate 80 07/05/19 00:33 Respiratory Rate 22 07/05/19 00:33 Blood Pressure 129/77 07/05/19 00:33 Pulse Oximetry 100 07/05/19 00:33 Course Orders Ordered: ED Orders 07/05/19 01:37 XR chest 2V Stat Discontinued Medications Albuterol (Ventolin Hfa Prepack) 1 box MISC SEEINSTR ONE Stop: 07/05/19 00:42 Last Admin: 07/05/19 00:46 Dose: 1 box Documented by: KIRAN Methylprednisolone (Solu-Medrol 125 Mg Vial) 125 mg IV NOW ONE Stop: 07/05/19 00:34 Last Admin: 07/05/19 00:56 Dose: 125 mg Documented by: SCOTT Vital Signs Vital signs: Vital Signs - 8 hr 07/05/19 00:33 07/05/19 01:59 Temperature 96.8 F L Pulse Rate 80 72 Respiratory Rate 22 22 Blood Pressure 129/77 131/78 Pulse Oximetry 100 100 MDM - SOB/Dyspnea Imaging Data Chest x-ray: Radiologist's Impression: NAP Discharge Plan Departure Patient Disposition: Home Clinical Impression: Asthma with exacerbation Qualifiers: Asthma severity: moderate Asthma persistence: persistent Qualified Code(s): J45.41 - Moderate persistent asthma with (acute) exacerbation Discharge Date/Time: 07/05/19 02:00 Instructions: DI for Asthma -- Adult Activity Restrictions/Additional Instructions: *You have been diagnosed with [asthma exacerbation with anxiety ] *What to do: *Take medications as directed *Follow up with your primary care provider in 2-3 days, call for an appointment. Let them know you were seen in the Emergency Department and that we ask that you be seen in follow up *Return to ER if you should have any new, worsening or concerning symptoms Radiographic study has been interpreted by an emergency physician. The official diagnosis by radiology will be performed within the next 24 hours and should there be any change in outcome we will notify you of how to proceed. Prescriptions: New prednisone 20 mg tablet 20 mg PO DAILY Qty: 5 RF: 0 No Action gabapentin [Neurontin] 300 MG capsule 600 mg PO BID Qty: 0 RF: 0 sumatriptan succinate 25 mg tablet 25 mg PO PRN MDD 50 mg PRN (Reason: Migraine Headache) RF: 0 lorazepam 0.5 mg tablet 0.5 mg PO BID PRN (Reason: Anxiety) RF: 0 sertraline 25 mg tablet 25 mg PO QPM RF: 0 naproxen 500 mg tablet 500 mg PO DAILY PRN (Reason: PAIN) RF: 0 albuterol sulfate 90 mcg/actuation Aerosol Powdr Breath Activated 1 inh INHALATION PRN PRN (Reason: Shortness Of Breath) RF: 0 ondansetron HCl [Zofran] 4 mg tablet 4 mg PO QID PRN (Reason: nausea and vomiting) Qty: 10 RF: 0
[2019-07-05] MEDS: ALBUTEROL HFA PREPACK 1 BOX MISC (00:46)
[2019-07-05] MEDS: methylPREDNISolone 125 MG/2 ML VIAL IV (00:56)
--- NOTE | 2019-07-05 01:37 | DI.RAD.S_ITS ---
PROCEDURE: XR CHEST 2V INDICATIONS: cough, Shortness of breath TECHNIQUE: 2 views of the chest were acquired. COMPARISON: [facility], CHEST 1 VIEW, 12/05/2014, 13:10. [facility], CHEST 2 VIEW, 12/09/2014, 1:24. [facility], CHEST 1 VIEW, 05/27/2015, 14:06. [facility], CHEST 1 VIEW, 10/12/2016, 1:12. FINDINGS: Surgical changes and devices: Cholecystectomy clips are seen. Lungs and pleura: Lungs are clear. No pleural effusions or pneumothorax. Mediastinum: Mediastinal contours are normal. Heart size is normal. Bones and chest wall: No suspicious bony abnormalities. Soft tissues appear unremarkable. IMPRESSION: Clear lungs, without focal infiltrates. Note: No significant discrepancy from the preliminary report. Dictated by: Alex Renteria M.D. on 07/05/2019 at 9:05 Approved by: Alex Renteria M.D. on 07/05/2019 at 9:06
[2019-07-05 01:59] VITALS: BP 131/78; PULSE 72; RESP 22; O2SAT 100
== END 2019-07-05 02:00 | disposition home or self-care (01) ==
PROVIDERS: Emergency Provider Emergency Medicine; Family Provider Family Medicine; PCP Family Medicine
DX: J45.41 Moderate persistent asthma with (acute) exacerbation (principal); F41.9 Anxiety disorder, unspecified
CPT/HCPCS: 36415; 71046; 96374; 99284; J2930

== ENCOUNTER 2020-09-21 18:37 | Emergency (ER) | payer OTHER, MEDICAID, SELFPAY ==
--- NOTE | 2020-09-21 18:44 | ED_ITS ---
HPI - Headache General Chief Complaint: Headache Stated Complaint: migraine Time Seen by Provider: 09/21/20 18:41 Source: patient and family Mode of arrival: Ambulatory Limitations: no limitations History of Present Illness HPI Narrative: 45-year-old female former smoker with history of sinusitis, kidney stones and migraines presents with her significant other and a chief complaint of a severe right-sided migraine-type headache that came on while sleeping and has gradually progressed over the day. She states it is now 7/10, squeezing and stabbing in nature. She states it is worse with bright lights, loud noises and moving and improves with a dark room. She has no fever or chills. She denies any neck pain or neurologic symptoms such as numbness, tingling or weakness. She has developed some nausea vomiting after the pain started. MD Complaint: migraine Onset (ago): hour(s) Onset description: gradual Location: right Severity: severe Severity scale (1-10): 8 Quality: aching, throbbing, sharp and similar to previous headaches Relieving factors: dark room Exacerbating factors: light and noise Context: occurred at rest Associated symptoms: nausea and vomiting Treatments prior to arrival: none Related Data Home Medications Medication Instructions Recorded Confirmed gabapentin [Neurontin] 600 mg PO BID #0 12/10/12 11/27/18 albuterol sulfate 1 inh INHALATION PRN PRN 11/27/18 11/27/18 lorazepam 0.5 mg PO BID PRN 11/27/18 11/27/18 naproxen 500 mg PO DAILY PRN 11/27/18 11/27/18 sertraline 25 mg PO QPM 11/27/18 11/27/18 sumatriptan succinate 25 mg PO PRN PRN MDD 50 mg 11/27/18 11/27/18 Previous Rx's Medication Instructions Recorded ondansetron HCl [Zofran] 4 mg PO QID PRN #10 tab 11/27/18 prednisone 20 mg PO DAILY #5 tab 07/05/19 Allergies Allergy/AdvReac Type Severity Reaction Status Date / Time morphine [MORPHINE] Allergy Unknown Verified 09/21/20 18:55 Review of Systems Constitutional Constitutional: Denies chills, Denies fatigue, Denies fever(s), Denies frequent falls, Reports headache(s), Denies lethargy and Denies weakness Eyes Eyes: Denies change in vision, Denies eye discharge, Denies irritation and Denies loss of vision ENT Ears, Nose, Mouth, and Throat: Denies change in voice, Denies dizziness, Reports headache(s), Denies neck pain, Denies sore throat and Denies throat swelling Cardiovascular Cardiovascular: Denies chest pain, Denies irregular heart rhythm, Denies lightheadedness, Denies palpitations, Denies dyspnea, Denies dyspnea on exertion and Denies orthopnea Respiratory Respiratory: Denies cough, Denies dyspnea, Denies dyspnea on exertion and Denies wheezing Gastrointestinal Gastrointestinal: Denies abdominal pain, Denies change in bowel habits, Denies diarrhea, Reports nausea and Reports vomiting Musculoskeletal Musculoskeletal: Denies neck pain and Denies numbness Integumentary/Breasts Skin/Breast: Denies pruritus, Denies erythema, Denies rash and Denies wounds Neurologic Neurologic: Denies behavioral changes, Denies confusion, Denies dizziness, Denies frequent falls, Reports headache(s), Denies loss of vision, Denies numbness and Denies weakness Psychiatric Psychiatric: Denies anxiety, Denies behavioral changes, Denies confusion, Denies depression, Denies homicidal ideation and Denies suicidal ideation Endocrine Endocrine: Denies fatigue, Denies flushing and Denies palpitations Hematologic/Lymphatic Hematologic/Lymphatic: Denies easy bruising Allergic/Immunologic Allergic/Immunologic: Denies urticaria, Denies throat swelling and Denies wheezing Patient History Surgical History H/O: hysterectomy Hx of cholecystectomy Status post vaginal hysterectomy Social History Smoking Status: Former smoker alcohol intake: current substance use type: marijuana Smoking Status: Former smoker alcohol intake frequency: a few times a month Substance Use Type: marijuana Exam Narrative Exam Narrative: GENERAL: [45] year old patient appears stated age. Well- nourished, well-developed patient, in mild distress. Sitting in dark room, co vering her eyes, holding an emesis bag HEAD: Atraumatic. Normocephalic. EYES: Pupils equal round and reactive. Extraocular motions intact. No scleral icterus. No injection or drainage. ENT: Nose without bleeding, purulent drainage. Throat without erythema, tonsillar hypertrophy or exudate. Airway patent. NECK: Trachea midline. Non tender CARDIOVASCULAR: Regular rate and rhythm without murmurs, gallops, or rubs. RESPIRATORY: Clear to auscultation. Breath sounds equal bilaterally. No wheezes, rales, or rhonchi. GASTROINTESTINAL: Abdomen soft, non-tender, nondistended. EXTREMITIES: No edema or joint tenderness. BACK: Nontender without deformity or crepitance. No flank tenderness. NEURO: AOx3. SKIN: No rash or erythema of visible areas NIH Stroke Scale 1a. LOC: Patient is alert and keenly responsive (0) 1b. LOC Questions: Patient answers both LOC questions accurately (0) 1c. LOC Commands: Patient performs both tasks correctly (0) 2. Best Gaze: Normal (0) 3. Visual: No visual loss (0) 4. Facial palsy: Normal symmetrical movements (0) 5. Motor arm: No drift (0) 6. Motor leg: No drift (0) 7. Limb ataxia: Absent (0) 8. Sensory: Normal (0) 9. Best language: No aphasia; normal (0) 10. Dysarthria: Normal (0) 11. Extinction and inattention: No abnormality (0) NIHSS: 0 Initial Vital Signs Initial Vital Signs: Vital Signs Temperature 97.6 F 09/21/20 18:55 Pulse Rate 75 09/21/20 18:55 Respiratory Rate 18 09/21/20 18:55 Blood Pressure 190/99 H 09/21/20 18:55 Pulse Oximetry 96 09/21/20 18:55 Course Course Course Narrative: Patient demonstrated significant improvement with the above- stated therapies however she did developed a rather impressive dystonic reaction to the Reglan and that took 2 doses of Benadryl to improve. Orders Ordered: Discontinued Medications Dexamethasone (Dexamethasone 10 Mg/Ml Vial) 10 mg IV NOW ONE Stop: 09/21/20 19:07 Last Admin: 09/21/20 19:17 Dose: 10 mg Documented by: OSMAN Diphenhydramine HCl (Diphenhydramine 50 Mg/Ml Vial) 25 mg IV NOW ONE Stop: 09/21/20 19:47 Last Admin: 09/21/20 19:52 Dose: 25 mg Documented by: DEJUAN Diphenhydramine HCl (Diphenhydramine 50 Mg/Ml Vial) 25 mg IV NOW ONE Stop: 09/21/20 20:29 Last Admin: 09/21/20 20:32 Dose: 25 mg Documented by: OSMAN Sodium Chloride (Normal Saline 0.9%) 1,000 mls @ 1,000 mls/hr IV BOLUS ONE Stop: 09/21/20 20:05 Last Infusion: 09/21/20 20:18 Dose: 0 mls/hr Documented by: Admin: 09/21/20 19:17 Dose: 1,000 mls/hr Documented by: OSMAN Sodium Chloride (Normal Saline 0.9%) 1,000 mls @ 125 mls/hr IV CONT GARRETT Last Infusion: 09/21/20 21:57 Dose: 0 mls/hr Documented by: Admin: 09/21/20 20:32 Dose: 125 mls/hr Documented by: OSMAN Ketorolac Tromethamine (Ketorolac 30 Mg/Ml Vial) 15 mg IV NOW ONE Stop: 09/21/20 19:07 Last Admin: 09/21/20 19:17 Dose: 15 mg Documented by: OSMAN Metoclopramide HCl (Metoclopramide 10 Mg/2 Ml Inj) 10 mg IV NOW ONE Stop: 09/21/20 19:07 Last Admin: 09/21/20 19:17 Dose: 10 mg Documented by: OSMAN Ondansetron HCl (Ondansetron 4 Mg/2 Ml Inj) 4 mg IV NOW ONE Stop: 09/21/20 19:33 Last Admin: 09/21/20 21:57 Dose: Not Given Documented by: DEJUAN Vital Signs Vital signs: Vital Signs - 8 hr 09/21/20 18:55 Temperature 97.6 F Pulse Rate 75 Respiratory Rate 18 Blood Pressure 190/99 H Pulse Oximetry 96 MDM - Headache MDM Narrative Medical decision making narrative: Headache considerations include, but not limited to: Subarachnoid hemorrhage, but unlikely as patient denies sudden onset of pain, not worst of life, or neck pain Meningitis considered, but thought unlikely given lack of Brudzinski's, Kernig's sign, altered mental status or fever Giant cell arteritis considered, but thought unlikely given lack of unilateral findings, pain in buddhist, vision change HTN Emergency considered, but thought unlikely given normal vitals Other serious diagnoses considered unlikely given lack of red flag findings such as sudden onset, increasing frequency, immunocompromise, systemic signs (fever, chills, stiff neck, or rash), focal neurologic findings, trauma, blood thinners, etc. Discharge Plan Departure Patient Disposition: Home Clinical Impression: Migraine Qualifiers: Migraine type: unspecified Status migrainosus presence: without status migrainosus Intractability: not intractable Qualified Code(s): G43.909 - Migraine, unspecified, not intractable, without status migrainosus Instructions: DI for Migraine Activity Restrictions/Additional Instructions: *You have been diagnosed with [migraine-type headache] *What to do: *Please continue to take your regular medications as directed. [ ] New medication prescriptions sent to your pharmacy: [ ] [ ] New medication written as a paper prescription [ x] No new medications given *Please follow up with your primary care provider in 2-3 days, call for an appointment. Let them know you were seen in the Emergency Department and that we ask that you be seen in follow up. We will electronically transmit a record of today's note if your PCP is in our system *If you do not have a primary care provider please contact the [facility] Resource line at [phone]. They will ask some questions about your medical history and help get you set up with a doctor in the community. *Return to Emergency Department if you should have any new, worsening or concerning symptoms, such as such as [ fever > 101F, neck pain or stiffness, vomiting, confusion, seizure, focal weakness, vision change, speech deficit or other concerning symptoms ] Prescriptions: No Action gabapentin [Neurontin] 300 MG capsule 600 mg PO BID Qty: 0 RF: 0 prednisone 20 mg tablet 20 mg PO DAILY Qty: 5 RF: 0 sumatriptan succinate 25 mg tablet 25 mg PO PRN MDD 50 mg PRN (Reason: Migraine Headache) RF: 0 lorazepam 0.5 mg tablet 0.5 mg PO BID PRN (Reason: Anxiety) RF: 0 sertraline 25 mg tablet 25 mg PO QPM RF: 0 naproxen 500 mg tablet 500 mg PO DAILY PRN (Reason: PAIN) RF: 0 albuterol sulfate 90 mcg/actuation Aerosol Powdr Breath Activated 1 inh INHALATION PRN PRN (Reason: Shortness Of Breath) RF: 0 ondansetron HCl [Zofran] 4 mg tablet 4 mg PO QID PRN (Reason: nausea and vomiting) Qty: 10 RF: 0
[2020-09-21 18:55] VITALS: BP 190/99; PULSE 75; RESP 18; TEMP 36.4; O2SAT 96; BMI 32.1
[2020-09-21 19:15] VITALS: BP 161/89; PULSE 69; RESP 16; O2SAT 98
[2020-09-21] MEDS: SODIUM CHLORIDE 0.9% 1,000 ML 1000 ML IV (19:17)
[2020-09-21] MEDS: DEXAMETHASONE 10 MG/ML VIAL IV (19:17)
[2020-09-21] MEDS: KETOROLAC 30 MG/ML VIAL 15 MG IV (19:17)
[2020-09-21] MEDS: METOCLOPRAMIDE 10 MG/2 ML INJ IV (19:17)
--- NOTE | 2020-09-21 19:46 | PC.NURSE ---
Patient started feeling very claustrophobic and anxious; MD Bonilla balderas.
[2020-09-21] MEDS: diphenhydrAMINE 50 MG/ML VIAL 25 MG IV ×2 (19:52→20:32)
[2020-09-21 20:11] VITALS: PULSE 66; O2SAT 98
[2020-09-21] MEDS: SODIUM CHLORIDE 0.9% 1,000 ML 125 ML IV (20:32)
[2020-09-21 20:58] VITALS: PULSE 65; O2SAT 99
[2020-09-21 21:00] VITALS: PULSE 70; O2SAT 99
--- NOTE | 2020-09-21 21:04 | PC.NURSE ---
Patient requested to go home, but after the removal of her IV, she suddenly felt faint and lay down on the bed. Still requesting to go home stating she feels like she is racing but also drowsy. New PIV started and MIVF started; benedryl given.
[2020-09-21 21:58] VITALS: BP 135/81; PULSE 78; RESP 20; TEMP 36.4; O2SAT 98
== END 2020-09-21 21:59 | disposition home or self-care (01) ==
PROVIDERS: Emergency Provider Emergency Medicine
DX: G43.909 Migraine, unspecified, not intractable, without status migrainosus (principal); R11.2 Nausea with vomiting, unspecified
CPT/HCPCS: 36415; 96361; 96374; 96375; 96376; 99284; J1100; J1200; J1885; J2765

== ENCOUNTER 2020-10-21 09:14 | Emergency (ER) | payer OTHER, MEDICAID, SELFPAY ==
[2020-10-21] VITALS (15 sets, daily range): BP systolic 131–192; BP diastolic 66–103; PULSE 60–107; RESP 16–23; TEMP 36.4–36.8; O2SAT 92–99; BMI 32.5
--- NOTE | 2020-10-21 09:39 | ED.GENADULT ---
HPI - General Adult General Chief complaint: Abdominal Pain Stated complaint: UPPER ABD PAIN Time Seen by Provider: 10/21/20 09:31 Source: patient Mode of arrival: Wheelchair Limitations: no limitations History of Present Illness HPI narrative: Patient is a 45-year-old female who is here for evaluation of bilateral upper abdominal pain with left being greater than right. She states she has had problems with her pancreas in the past. She has also had a C diff infection in the past. She has had her gallbladder removed. Has had symptoms for the past several days that have been worse with eating. Has had some nausea. No change in bowel habits. No fevers. Has not tried anything for symptoms prior to arrival. Related Data Home Medications Medication Instructions Recorded Confirmed gabapentin [Neurontin] 600 mg PO BID #0 12/10/12 11/27/18 albuterol sulfate 1 inh INHALATION PRN PRN 11/27/18 11/27/18 lorazepam 0.5 mg PO BID PRN 11/27/18 11/27/18 naproxen 500 mg PO DAILY PRN 11/27/18 11/27/18 sertraline 25 mg PO QPM 11/27/18 11/27/18 sumatriptan succinate 25 mg PO PRN PRN MDD 50 mg 11/27/18 11/27/18 Previous Rx's Medication Instructions Recorded ondansetron HCl [Zofran] 4 mg PO QID PRN #10 tab 11/27/18 prednisone 20 mg PO DAILY #5 tab 07/05/19 dicyclomine 10 mg PO TID PRN #20 cap 10/21/20 Allergies Allergy/AdvReac Type Severity Reaction Status Date / Time morphine [MORPHINE] Allergy Unknown Verified 10/21/20 09:27 Review of Systems Constitutional Constitutional: Denies fever(s) Cardiovascular Cardiovascular: Denies chest pain and Denies dyspnea Respiratory Respiratory: Denies dyspnea Gastrointestinal Gastrointestinal: Reports abdominal pain, Denies change in bowel habits and Reports nausea Genitourinary Genitourinary: Denies dysuria Genitourinary: Denies abnormal vaginal bleeding and Denies dysuria Musculoskeletal Musculoskeletal: Reports back pain Integumentary/Breasts Skin/Breast: Denies rash Neurologic Neurologic: Reports system reviewed and no additional complaints, except as documented Psychiatric Psychiatric: Reports system reviewed and no additional complaints, except as documented Hematologic/Lymphatic On Anticoagulants: No Allergic/Immunologic Allergic/Immunologic: Reports system reviewed and no additional complaints, except as documented Patient History Medical History Kidney stone on left side Labyrinthitis, left ear Left ureteral stone Paresthesia and pain of left extremity Right maxillary sinusitis Surgical History H/O: hysterectomy Hx of cholecystectomy Status post vaginal hysterectomy Social History Smoking Status: Current every day smoker alcohol intake: current substance use type: marijuana Smoking Status: Current every day smoker alcohol intake frequency: a few times a month Substance Use Type: marijuana Exam Initial Vital Signs Initial Vital Signs: Vital Signs Temperature 97.6 F 10/21/20 09:22 Pulse Rate 107 H 10/21/20 09:22 Respiratory Rate 19 10/21/20 09:22 Blood Pressure 152/91 H 10/21/20 09:22 Pulse Oximetry 95 10/21/20 09:22 Const General: cooperative and No comfortable (Uncomfortable) Limitations: mental status not altered HENNY Head: normal to inspection and normocephalic Resp Effort & Inspection: normal respiratory effort Auscultation: clear to auscultation bilaterally Cardio Rate: regular rate Rhythm: regular rhythm GI Inspection: non-distended Palpation: soft and tender (Bilateral upper abdomen) Skin Lesions: no lesions Rashes: no rashes Neuro General: patient alert, patient awake and patient oriented x3 Cognition: normal cognition Speech: speech normal Extrem General: normal to inspection and capillary refill normal Psych Appearance: grossly normal and well kempt Course Orders Ordered: ED Orders 10/21/20 11:46 Urine Microscopic Stat Discontinued Medications Dicyclomine HCl (Dicyclomine 10 Mg Capsule) 10 mg PO NOW ONE Stop: 10/21/20 12:15 Last Admin: 10/21/20 12:29 Dose: 10 mg Documented by: LETY Hydromorphone HCl (Hydromorphone 0.5 Mg Inj) 0.5 mg IV NOW ONE Stop: 10/21/20 09:38 Last Admin: 10/21/20 09:45 Dose: 0.5 mg Documented by: LETY Hydromorphone HCl (Hydromorphone 0.5 Mg Inj) 0.5 mg IV NOW ONE Stop: 10/21/20 10:04 Last Admin: 10/21/20 10:09 Dose: 0.5 mg Documented by: LETY Sodium Chloride (Normal Saline 0.9%) 1,000 mls @ 1,000 mls/hr IV BOLUS ONE Stop: 10/21/20 11:02 Last Infusion: 10/21/20 11:39 Dose: 0 mls/hr Documented by: Admin: 10/21/20 10:09 Dose: 1,000 mls/hr Documented by: LETY Ketorolac Tromethamine (Ketorolac 30 Mg/Ml Vial) 30 mg IV NOW ONE Stop: 10/21/20 10:50 Last Admin: 10/21/20 10:55 Dose: 30 mg Documented by: LETY Ondansetron HCl (Ondansetron 4 Mg/2 Ml Inj) 4 mg IV NOW ONE Stop: 10/21/20 09:28 Last Admin: 10/21/20 09:40 Dose: 4 mg Documented by: LETY Pantoprazole Sodium (Pantoprazole 40 Mg Vial) 40 mg IV NOW ONE Stop: 10/21/20 12:15 Last Admin: 10/21/20 12:29 Dose: 40 mg Documented by: LETY Vital Signs Vital signs: Vital Signs - 8 hr 10/21/20 11:30 10/21/20 11:44 10/21/20 12:00 Temperature Pulse Rate 64 69 79 Respiratory Rate Blood Pressure 131/66 153/71 H Pulse Oximetry 95 97 98 10/21/20 12:01 10/21/20 12:30 10/21/20 12:31 Temperature Pulse Rate 70 74 72 Respiratory Rate Blood Pressure 192/99 H 172/103 H Pulse Oximetry 99 99 99 10/21/20 13:32 Temperature 98.3 F Pulse Rate 60 Respiratory Rate 16 Blood Pressure 160/87 H Pulse Oximetry 97 Medical Decision Making Lab Data Lab results reviewed: Yes I reviewed the patient's lab results. Result diagrams: 10/21/20 09:42 10/21/20 09:42 Labs: Lab Results 10/21/20 10/21/20 10/21/20 Range/Units 09:42 09:42 11:46 WBC 10.5 (4.5-11.0) X10^3/uL RBC 4.95 (4.0-5.2) X10^6/uL Hgb 14.7 (12.0-16.0) g/dL Hct 44.0 (36-46) % MCV 88.9 (80-100) fL MCH 29.7 (26-34) PG MCHC 33.4 (30-36) % RDW 13.9 (11.6-14.8) % Plt Count 353 (150-400) X10^3/uL Neut % (Auto) 71.4 (50-75) % Lymph % (Auto) 21.0 L (25-40) % Gallia % (Auto) 6.1 (3-14) % Eos % (Auto) 0.9 L (2-4) % Baso % (Auto) 0.6 (0-2) % Neut # (Auto) 7500 H (6496-7773) /uL Lymph # (Auto) 2200 (7769-8740) /uL Gallia # (Auto) 600 (0-900) /uL Eos # (Auto) 100 (0-450) /uL Baso # (Auto) 100 (0-100) /uL Sodium 137 (137-145) mmol/L Potassium 4.3 (3.4-5.1) mmol/L Chloride 106 (98-107) mmol/L Carbon Dioxide 24 (22-32) mmol/L BUN 13 (7-17) mg/dL Creatinine 0.88 (0.52-1.04) mg/dL Estimated GFR > 60.0 (>60) mL/min BUN/Creatinine Ratio 14.8 (6-22) Glucose 158 H (70-100) mg/dL Calcium 9.7 (8.4-10.2) mg/dL Total Bilirubin 1.0 (0.2-1.3) mg/dL AST 39 H (14-36) IU/L ALT 38 H (<35) IU/L Alkaline Phosphatase 86 (38-126) U/L Total Protein 8.1 (6.3-8.2) g/dL Albumin 4.7 (3.5-5.0) g/dL Globulin 3.4 (1.7-4.1) g/dL Albumin/Globulin Ratio 1.4 (1.0-2.8) Lipase 108 (23-300) U/L Urine RBC 0-1/hpf (0-5/HPF) Urine WBC 0-1/hpf (0-5/HPF) Ur Squamous Epith Cells 10-30 /hpf H D (0-5/HPF) Urine Bacteria Occasional (0-1) D (None) Urine Mucus 1+ H (Negative) Ur Culture Indicated? Cult not indicated Urine Dip Bedside Urine Glucose Negative Bedside Urine Bilirubin - Negative Bedside Urine Ketone ++ 40 Urine Specific Effort 1.005 Bedside Urine Occult Blood + Bedside Urine pH 6 Bedside Urine Protein - Negative Bedside Urine Urobilinogen - Negative Bedside Urine Nitrite - Negative Bedside Urine Leukocytes - Negative Esterase Point of care testing: Urine Dip Bedside Urine Glucose Negative Bedside Urine Bilirubin - Negative Bedside Urine Ketone ++ 40 Urine Specific Effort 1.005 Bedside Urine Occult Blood + Bedside Urine pH 6 Bedside Urine Protein - Negative Bedside Urine Urobilinogen - Negative Bedside Urine Nitrite - Negative Bedside Urine Leukocytes - Negative Esterase Imaging Data CT scan - abdomen/pelvis: Radiologist's Impression: [address] [id number] Scan ReportSigned Patient: Tracy Mancini OMR#: [id number]: [id number]:[id number]/Sex: 45 / FDate of Service: 10/21/20Loc: EDAccession Number: [id number] Procedure: CT abdomen pelvis w con Ordering Provider: Don Velasquez D.O. PROCEDURE: CT ABDOMEN PELVIS W CON INDICATIONS: Left-sided abdominal discomfort TECHNIQUE: After the administration of intravenous contrast, 5 mm thick sections acquired from the diaphragm to the symphysis. 5 mm coronal and sagittal reformats were acquired. For radiation dose reduction, the following was used: automated exposure control, adjustment of mA and/or kV according to patient size. COMPARISON: [facility], CT, CT ABDOMEN PELVIS W CON, 11/27/2018, 17:59. FINDINGS: Image quality: Excellent. ABDOMEN: Lung bases: Lung bases are clear. Heart size is normal. Solid organs: Liver is normal in size and enhancement. Mild diffuse hepatic steatosis. Gallbladder is surgically absent. Biliary system is non dilated. Pancreas enhances normally. Spleen is normal in size and enhancement. No adrenal nodules. Kidneys demonstrate normal size and enhancement, without hydronephrosis. Peritoneum and bowel: Bowel loops demonstrate normal wall thickness and caliber. No free fluid or air. Left colon is decompressed resulting in mild prominence in the appearance of the colonic wall. Nodes and vessels: No retroperitoneal or mesenteric adenopathy by size criteria. Aorta and inferior vena cava are normal in size. Miscellaneous: No ventral hernias. PELVIS: Genitourinary: Bladder wall thickness is normal. Miscellaneous: No inguinal hernias or adenopathy. Uterus is surgically absent. Bones: No suspicious bony lesions. No vertebral body compression fractures. IMPRESSION: 1. No evidence of acute abdominal process. No findings which explain left-sided abdominal pain symptoms. 2. Mild hepatic steatosis. 3. Remote cholecystectomy and hysterectomy. Dictated by: Fidel Darby M.D. on 10/21/2020 at 11:08 Approved by: Fidel Darby M.D. on 10/21/2020 at 11:11 ECG Data Attestation: I personally reviewed and interpreted this ECG as follows: Prior ECG tracings: not available for review Interpretation: Sinus rhythm Ventricular rate is 73 Normal axis Normal QTC Nonspecific ST T wave changes MDM Narrative Medical decision making narrative: Patient's labs and CT scan are unremarkable. Her symptoms drastically improved after she was given the Bentyl and the Protonix. She had only minimal improvement with the medications prior to this. She has had diarrhea for the past couple days. I suspect that the discomfort that she is having is actually cramping most likely related to her diarrheal illness. There is no signs of pancreatitis. Patient has famotidine at home and she was instructed to start to take this. Will discharge with a prescription for Bentyl. Will hold on further workup for now. No indication for antibiotics. She was given return precautions. She expressed understanding Discharge Plan Departure Patient Disposition: Home Clinical Impression: Abdominal pain Instructions: DI for Abdominal Pain-Adult Activity Restrictions/Additional Instructions: I do recommend that you take the famotidine/Pepcid that you have at home on a daily basis for the next 7-10 days. Then you can do it as needed afterwards. Start taking the prescription for the Bentyl as directed and as needed. Contact your primary provider for follow-up. Return to the emergency department for any new or worsening symptoms Prescriptions: New dicyclomine 10 mg capsule 10 mg PO TID PRN (Reason: abdominal pain) Qty: 20 RF: 0 No Action gabapentin [Neurontin] 300 MG capsule 600 mg PO BID Qty: 0 RF: 0 prednisone 20 mg tablet 20 mg PO DAILY Qty: 5 RF: 0 sumatriptan succinate 25 mg tablet 25 mg PO PRN MDD 50 mg PRN (Reason: Migraine Headache) RF: 0 lorazepam 0.5 mg tablet 0.5 mg PO BID PRN (Reason: Anxiety) RF: 0 sertraline 25 mg tablet 25 mg PO QPM RF: 0 naproxen 500 mg tablet 500 mg PO DAILY PRN (Reason: PAIN) RF: 0 albuterol sulfate 90 mcg/actuation Aerosol Powdr Breath Activated 1 inh INHALATION PRN PRN (Reason: Shortness Of Breath) RF: 0 ondansetron HCl [Zofran] 4 mg tablet 4 mg PO QID PRN (Reason: nausea and vomiting) Qty: 10 RF: 0 Referrals: Rohan Lambert MD [Primary Care Provider] -
[2020-10-21] MEDS: ONDANSETRON 4 MG/2 ML INJ IV (09:40)
[2020-10-21] MEDS: HYDROMORPHONE 0.5 MG INJ IV ×2 (09:45→10:09)
[2020-10-21 09:49] LABS: Add Manual Diff / Slide Review NO; Basophils Absolute Auto 100 /uL (0-100); Basophils Percent Auto 0.6 % (0-2); Eosinophils Absolute Auto 100 /uL (0-450); Eosinophils Percent Auto 0.9 % (2-4); Hemoglobin 14.7 g/dL (12.0-16.0); Lymphocytes Absolute Auto 2200 /uL (1100-4500); Mean Corpuscular HGB Conc 33.4 % (30-36); Mean Corpuscular Hemoglobin 29.7 PG (26-34); Mean Corpuscular Volume 88.9 fL (80-100); Monocytes Absolute Auto 600 /uL (0-900); Monocytes Percent Auto 6.1 % (3-14); Neutrophils Absolute Auto 7500 /uL (1500-7000); Neutrophils Percent Auto 71.4 % (50-75); Platelet Count 353 X10^3/uL (150-400); Red Blood Cell Count 4.95 X10^6/uL (4.0-5.2); Red Cell Distribution Width 13.9 % (11.6-14.8); White Blood Cell Count 10.5 X10^3/uL (4.5-11.0)
[2020-10-21 09:58] LABS: Alanine Aminotransferase 38 IU/L (<35); Albumin 4.7 g/dL (3.5-5.0); Albumin Globulin Ratio 1.4 (1.0-2.8); Alkaline Phosphatase 86 U/L (38-126); Aspartate Aminotransferase 39 IU/L (14-36); BUN Creatinine Ratio 14.8 (6-22); Blood Urea Nitrogen 13 mg/dL (7-17); Calcium 9.7 mg/dL (8.4-10.2); Carbon Dioxide 24 mmol/L (22-32); Chloride 106 mmol/L (98-107); Estimated Glomerular Filt Rate > 60.0 mL/min (>60); Globulin 3.4 g/dL (1.7-4.1); Glucose 158 mg/dL (70-100); HEMOLYSIS < 15 (0-50); Lipase 108 U/L (23-300); Potassium 4.3 mmol/L (3.4-5.1); Sodium 137 mmol/L (137-145); Total Protein 8.1 g/dL (6.3-8.2)
--- NOTE | 2020-10-21 10:05 | DI.CT.S_ITS ---
PROCEDURE: CT ABDOMEN PELVIS W CON INDICATIONS: Left-sided abdominal discomfort TECHNIQUE: After the administration of intravenous contrast, 5 mm thick sections acquired from the diaphragm to the symphysis. 5 mm coronal and sagittal reformats were acquired. For radiation dose reduction, the following was used: automated exposure control, adjustment of mA and/or kV according to patient size. COMPARISON: [facility], CT, CT ABDOMEN PELVIS W CON, 11/27/2018, 17:59. FINDINGS: Image quality: Excellent. ABDOMEN: Lung bases: Lung bases are clear. Heart size is normal. Solid organs: Liver is normal in size and enhancement. Mild diffuse hepatic steatosis. Gallbladder is surgically absent. Biliary system is non dilated. Pancreas enhances normally. Spleen is normal in size and enhancement. No adrenal nodules. Kidneys demonstrate normal size and enhancement, without hydronephrosis. Peritoneum and bowel: Bowel loops demonstrate normal wall thickness and caliber. No free fluid or air. Left colon is decompressed resulting in mild prominence in the appearance of the colonic wall. Nodes and vessels: No retroperitoneal or mesenteric adenopathy by size criteria. Aorta and inferior vena cava are normal in size. Miscellaneous: No ventral hernias. PELVIS: Genitourinary: Bladder wall thickness is normal. Miscellaneous: No inguinal hernias or adenopathy. Uterus is surgically absent. Bones: No suspicious bony lesions. No vertebral body compression fractures. IMPRESSION: 1. No evidence of acute abdominal process. No findings which explain left-sided abdominal pain symptoms. 2. Mild hepatic steatosis. 3. Remote cholecystectomy and hysterectomy. Dictated by: Fidel Darby M.D. on 10/21/2020 at 11:08 Approved by: Fidel Darby M.D. on 10/21/2020 at 11:11
[2020-10-21] MEDS: SODIUM CHLORIDE 0.9% 1,000 ML 1000 ML IV (10:09)
[2020-10-21] MEDS: KETOROLAC 30 MG/ML VIAL IV (10:55)
[2020-10-21 12:06] LABS: Bacteria Urine Occasional (0-1); Culture Indicated Urine Cult Not Indicated; Mucus Urine 1+ (Negative); RBC Urine 0-1/HPF (0-5/HPF); Squamous Epithelial Cell Urine 10-30 /HPF (0-5/HPF); WBC Urine 0-1/HPF (0-5/HPF)
[2020-10-21] MEDS: PANTOPRAZOLE 40 MG VIAL IV (12:29)
[2020-10-21] MEDS: DICYCLOMINE 10 MG CAPSULE PO (12:29)
== END 2020-10-21 13:33 | disposition home or self-care (01) ==
PROVIDERS: Emergency Provider Emergency Medicine; PCP Family Medicine
DX: R10.10 Upper abdominal pain, unspecified (principal); R11.0 Nausea; M54.9 Dorsalgia, unspecified
CPT/HCPCS: 36415; 74177; 80053; 81003; 81015; 83690; 85025; 93005; 96361; 96374; 96375; 96376; 99284; C9113; J1170; J1885; J2405

== ENCOUNTER 2021-04-30 10:31 | Emergency (ER) | payer OTHER, MEDICAID, SELFPAY ==
[2021-04-30 10:56] VITALS: BP 127/91; PULSE 99; RESP 22; TEMP 36.7; O2SAT 97; BMI 30.8
[2021-04-30 11:01] VITALS: BP 127/91; PULSE 99; RESP 22; TEMP 36.7; O2SAT 97; BMI 30.8
[2021-04-30 11:02] LABS: Bilirubin Urine UA 2+ (NEGATIVE); Glucose Urine UA TRACE g/dL (Negative); Ketones Urine UA TRACE (NEGATIVE); Leukocyte Esterase Urine UA 1+ (NEGATIVE); Nitrite Urine UA POSITIVE (Negative); Occult Blood Urine UA 3+ (Negative); Protein Urine UA 3+ (Negative); Specific Gravity Urine UA >=1.030 (1.000-1.035)
[2021-04-30 11:03] LABS: Appearance Urine UA CLOUDY; Color Urine UA RED; pH Urine UA 6.5 (4.5-8.0)
[2021-04-30 11:16] LABS: Ictotest Urine Positive (Negative); RBC Urine 30-100/HPF (0-5/HPF); Squamous Epithelial Cell Urine 10-30 /HPF (0-5/HPF); WBC Urine 30-100/HPF (0-5/HPF)
[2021-04-30 11:22] LABS: Bacteria Urine None Seen; Culture Indicated Urine Cult Not Indicated
--- NOTE | 2021-04-30 11:35 | PC.NURSE ---
Pt used her call light,she said I want the doctor in here right now. I informed her that he would be in as soon as he could. Pt then yelled over the call light phone right fucking now. I informed Dr Cary that she was demanding to see him right now. He said he would be in there in just a few minutes that he was finishing up what he was doing. I entered her room to follow up and let her know that he would be in to see her in just a few minutes. She then said fuck you bitch and attempted to slam the door on me. I told her that it was not ok that she talk to me like that or slam the door in my face. She then got out of the bed threw a blanket at me and said get the fuck out of here kong. I told her that if she attempted to injure me or anyone else again I would be calling the police on her. She pushed the door shut again,pulled her IV out,quickly walked out of room 4 and told me to fuck off again. She walked out of the ED threw the red phone outside of the ED doors,pushed over a sign near the ED entrance all while telling people to fuck off. I then told her that I was calling the police and she walked out of the hospital entrance.
--- NOTE | 2021-04-30 18:52 | ED.FEMALEGU ---
HPI - Female Genitourinary General Chief complaint: Urogenital-Female Stated complaint: Pain in lt abd, bloody urine Time Seen by Provider: 04/30/21 11:37 Source: patient Mode of arrival: Wheelchair Related Data Home Medications Medication Instructions Recorded Confirmed gabapentin 300 mg capsule 600 mg PO BID #0 12/10/12 11/27/18 (Neurontin) albuterol sulfate 90 mcg/actuation 1 inh INHALATION PRN PRN 11/27/18 11/27/18 breath activated powder inhaler lorazepam 0.5 mg tablet 0.5 mg PO BID PRN 11/27/18 11/27/18 naproxen 500 mg tablet 500 mg PO DAILY PRN 11/27/18 11/27/18 sertraline 25 mg tablet 25 mg PO QPM 11/27/18 11/27/18 sumatriptan succinate 25 mg tablet 25 mg PO PRN PRN MDD 50 mg 11/27/18 11/27/18 Previous Rx's Medication Instructions Recorded ondansetron HCl 4 mg tablet 4 mg PO QID PRN #10 tab 11/27/18 (Zofran) prednisone 20 mg tablet 20 mg PO DAILY #5 tab 07/05/19 dicyclomine 10 mg capsule 10 mg PO TID PRN #20 cap 10/21/20 Allergies Allergy/AdvReac Type Severity Reaction Status Date / Time morphine [MORPHINE] Allergy Unknown Verified 04/30/21 10:56 Patient History Medical History Kidney stone on left side Labyrinthitis, left ear Left ureteral stone Paresthesia and pain of left extremity Right maxillary sinusitis Surgical History H/O: hysterectomy Hx of cholecystectomy Status post vaginal hysterectomy tobacco type: vaping alcohol intake frequency: a few times a month Substance Use Type: marijuana Exam Initial Vital Signs Initial Vital Signs: Vital Signs Temperature 98.0 F 04/30/21 10:56 Pulse Rate 99 H 04/30/21 10:56 Respiratory Rate 22 04/30/21 10:56 Blood Pressure 127/91 H 04/30/21 10:56 Pulse Oximetry 97 04/30/21 10:56 Course Orders Ordered: ED Orders 04/30/21 10:44 Ictotest Urine Stat Urinalysis and Microscopic Stat Vital Signs Vital signs: Vital Signs - 8 hr 04/30/21 10:56 04/30/21 11:01 Temperature 98.0 F 98.0 F Pulse Rate 99 H 99 H Respiratory Rate 22 22 Blood Pressure 127/91 H 127/91 H Pulse Oximetry 97 97 MDM - Female Genitourinary Lab Data Labs: Lab Results 04/30/21 Range/Units 10:44 Urine Color Red Urine Appearance Cloudy Urine pH 6.5 (4.5-8.0) Ur Specific [place] >=1.030 H (1.000-1.035) Urine Protein 3+ H (Negative) Urine Glucose (UA) Trace H (Negative) g/dL Urine Ketones Trace H (NEGATIVE) Urine Occult Blood 3+ H (Negative) Urine Nitrate Positive H (Negative) Urine Bilirubin 2+ H D (NEGATIVE) Ur Bilirubin Confirm Positive H (Negative) Urine Urobilinogen 1.0 (0.2) E.U./dL Ur Leukocyte Esterase 1+ H (NEGATIVE) Urine RBC 30-100/hpf H (0-5/HPF) Urine WBC 30-100/hpf H (0-5/HPF) Ur Squamous Epith Cells 10-30 /hpf H (0-5/HPF) Urine Bacteria None seen (None) Ur Culture Indicated? Cult not indicated Discharge Plan Departure Patient Disposition: Left Without Being Seen Clinical Impression: Patient left without being seen
== END 2021-04-30 11:40 | disposition left against medical advice (07) ==
PROVIDERS: Emergency Provider Emergency Medicine; PCP Family Medicine
DX: Z53.21 Procedure and treatment not carried out due to patient leaving prior to being seen by health care provider (principal)
CPT/HCPCS: 81001; 99281

== ENCOUNTER 2021-09-23 09:15 | Emergency (ER) | payer OTHER, MEDICAID, SELFPAY ==
--- NOTE | 2021-09-23 09:35 | DI.RAD.S_ITS ---
PROCEDURE: XR ACUTE ABDOMEN SERIES INDICATIONS: N/V/D cough, SOB TECHNIQUE: One view chest and two views of the abdomen were acquired. COMPARISON: None. FINDINGS: Surgical changes and devices: Surgical clips are seen in right upper quadrant abdomen. Chest: Lungs are clear. Heart size is normal. No pleural effusions. No pneumoperitoneum. Abdomen: Bowel gas pattern is nonobstructive. Moderate fecal stasis in the colon is seen. No suspicious calcifications. Visualized solid organ contours appear normal. Bones: No suspicious bony lesions. IMPRESSION: No evidence of bowel obstruction or gross free air. [id number] constipation. No acute cardiopulmonary pathology. Dictated by: Jose L Dia M.D. on 09/23/2021 at 10:01 Approved by: Jose L Dia M.D. on 09/23/2021 at 10:04
--- NOTE | 2021-09-23 09:37 | ED.NAVMDI ---
HPI - Nausea/Vomiting/Diarrhea General Chief complaint: Nausea/Vomiting/Diarrhea Stated complaint: Vomitting, diarrhea, blood and mucous 1 week Time Seen by Provider: 09/23/21 09:20 History of Present Illness HPI Narrative: 46-year-old daily smoker with history of migraines presents with a chief complaint of an evolution of symptoms over the past week. She states she started with runny nose and nasal congestion with some cough and has proceeded to develop significant nausea, vomiting and diarrhea. She has generalized abdominal cramping which seems to build until she has a bowel movement at which point she has some improvement. She denies any exposure to ill persons. She denies recent antibiotics or exposure to bad food nor any international travel. She has no chest pain or shortness of breath. She denies any obvious other provocation or palliation of her abdominal discomfort. She denies dysuria, frequency or urgency, only stating that if anything she has had less urine than normal. Related Data Home Medications Medication Instructions Recorded Confirmed gabapentin 300 mg capsule 600 mg PO BID #0 12/10/12 11/27/18 (Neurontin) albuterol sulfate 90 mcg/actuation 1 inh INHALATION PRN PRN 11/27/18 11/27/18 breath activated powder inhaler lorazepam 0.5 mg tablet 0.5 mg PO BID PRN 11/27/18 11/27/18 naproxen 500 mg tablet 500 mg PO DAILY PRN 11/27/18 11/27/18 sertraline 25 mg tablet 25 mg PO QPM 11/27/18 11/27/18 sumatriptan succinate 25 mg tablet 25 mg PO PRN PRN MDD 50 mg 11/27/18 11/27/18 Previous Rx's Medication Instructions Recorded ondansetron HCl 4 mg tablet 4 mg PO QID PRN #10 tab 11/27/18 (Zofran) prednisone 20 mg tablet 20 mg PO DAILY #5 tab 07/05/19 dicyclomine 10 mg capsule 10 mg PO TID PRN #20 cap 10/21/20 promethazine 25 mg rectal 25 mg MA Q4-6H PRN #12 ea 09/23/21 suppository Allergies Allergy/AdvReac Type Severity Reaction Status Date / Time morphine [MORPHINE] Allergy Unknown Verified 09/23/21 09:54 Review of Systems Review of Systems Narrative: GENERAL: See HPI HEENT: See HPI RESPIRATORY: See HPI CARDIOVASCULAR: Denies chest pain, palpitations, orthopnea, edema, GASTROINTESTINAL: See HPI : See HPI MUSCULOSKELETAL: denies weakness, joint pain, or bony pain SKIN: Denies rash, skin lesions, or other NEUROLOGIC: Denies weakness, headache, numbness, change in speech, confusion, seizures, incoordination. PSYCHIATRIC: No concerning psychosocial issues. 12 point review of systems is negative except for those stated above Patient History Medical History Kidney stone on left side Labyrinthitis, left ear Left ureteral stone Paresthesia and pain of left extremity Right maxillary sinusitis Surgical History H/O: hysterectomy Hx of cholecystectomy Status post vaginal hysterectomy Social History Smoking Status: Current every day smoker alcohol intake: current substance use type: marijuana Smoking Status: Current every day smoker tobacco type: vaping alcohol intake frequency: a few times a month Substance Use Type: marijuana Exam Narrative Exam Narrative: GENERAL: [46 year old patient appears stated age. Well-developed patient, in mild distress. Holding an emesis bag HEAD: Atraumatic. Normocephalic. EYES: Pupils equal round and reactive. Extraocular motions intact. No scleral icterus. No injection or drainage. ENT: Nose without bleeding, purulent drainage. Throat without erythema, tonsillar hypertrophy or exudate. Airway patent. NECK: Trachea midline. Non tender CARDIOVASCULAR: Regular rate and rhythm without murmurs, gallops, or rubs. RESPIRATORY: Clear to auscultation. Breath sounds equal bilaterally. No wheezes, rales, or rhonchi. GASTROINTESTINAL: Abdomen soft, non-tender, nondistended. EXTREMITIES: No edema or joint tenderness. BACK: Nontender without deformity or crepitance. No flank tenderness. NEURO: AOx3. SKIN: No rash or erythema of visible areas Initial Vital Signs Initial Vital Signs: Vital Signs Temperature 97.4 F L 09/23/21 09:51 Pulse Rate 72 09/23/21 09:51 Respiratory Rate 16 09/23/21 09:51 Blood Pressure 117/78 09/23/21 09:51 Pulse Oximetry 98 05/06/22 09:51 Course Orders Ordered: ED Orders 09/23/21 09:35 XR acute abdomen series Stat Covid-19 + FLU A/B by PCR Stat 09/23/21 09:45 Complete Blood Count AUTO DIFF Stat Comprehensive Metabolic Panel Stat Magnesium Stat 09/23/21 10:50 Ictotest Urine Stat Urine Culture Stat Urine Microscopic Stat Discontinued Medications Sodium Chloride (Normal Saline 0.9%) 1,000 mls @ 1,000 mls/hr IV BOLUS ONE Stop: 09/23/21 10:34 Last Infusion: 09/23/21 11:42 Dose: 0 mls/hr Documented by: Admin: 09/23/21 10:01 Dose: 1,000 mls/hr Documented by: LETY Ondansetron HCl (Ondansetron 4 Mg/2 Ml Inj) 4 mg IV NOW ONE Stop: 09/23/21 09:36 Last Admin: 09/23/21 10:01 Dose: 4 mg Documented by: LETY Pantoprazole Sodium (Pantoprazole 40 Mg Vial) 40 mg IV NOW ONE Stop: 09/23/21 09:36 Last Admin: 09/23/21 10:00 Dose: 40 mg Documented by: LETY Vital Signs Vital signs: Vital Signs - 8 hr 09/23/21 09:51 09/23/21 10:08 09/23/21 10:10 Temperature 97.4 F L Pulse Rate 72 77 69 Respiratory Rate 16 20 Blood Pressure 117/78 157/87 H 157/68 H Pulse Oximetry 98 96 98 09/23/21 10:30 09/23/21 11:00 09/23/21 11:05 Temperature Pulse Rate 63 64 67 Respiratory Rate 21 24 30 H Blood Pressure 127/77 148/80 H Pulse Oximetry 97 99 98 MDM - Nausea/Vomiting/Diarrhea Lab Data Result diagrams: 09/23/21 09:45 09/23/21 09:45 Labs: Lab Results 09/23/21 09/23/21 09/23/21 Range/Units 09:35 09:45 09:45 WBC 7.9 (4.5-11.0) X10^3/uL RBC 4.39 (4.0-5.2) X10^6/uL Hgb 12.9 (12.0-16.0) g/dL Hct 37.9 (36-46) % MCV 86.5 (80-100) fL MCH 29.4 (26-34) PG MCHC 34.0 (30-36) % RDW 13.5 (11.6-14.8) % Plt Count 274 (150-400) X10^3/uL Neut % (Auto) 78.9 H (50-75) % Lymph % (Auto) 15.5 L (25-40) % Foster % (Auto) 5.2 (3-14) % Eos % (Auto) 0.1 L (2-4) % Baso % (Auto) 0.3 (0-2) % Neut # (Auto) 6200 (5657-3343) /uL Lymph # (Auto) 1200 (4422-2641) /uL Foster # (Auto) 400 (0-900) /uL Eos # (Auto) 0 (0-450) /uL Baso # (Auto) 0 (0-100) /uL Sodium 141 (137-145) mmol/L Potassium 4.0 (3.4-5.1) mmol/L Chloride 111 H (98-107) mmol/L Carbon Dioxide 23 (22-32) mmol/L BUN 15 (7-17) mg/dL Creatinine 0.74 (0.52-1.04) mg/dL Estimated GFR > 60 (>60) mL/min BUN/Creatinine Ratio 20.3 (6-22) Glucose 157 H (70-100) mg/dL Calcium 8.7 (8.4-10.2) mg/dL Magnesium 1.7 (1.6-2.3) mg/dL Total Bilirubin 0.4 (0.2-1.3) mg/dL AST 20 (14-36) IU/L ALT 16 (<35) IU/L Alkaline Phosphatase 78 (38-126) U/L Total Protein 7.0 (6.3-8.2) g/dL Albumin 4.0 (3.5-5.0) g/dL Globulin 3.0 (1.7-4.1) g/dL Albumin/Globulin Ratio 1.3 (1.0-2.8) Ur Bilirubin Confirm (Negative) Urine RBC (0-5/HPF) Urine WBC (0-5/HPF) Ur Squamous Epith Cells (0-5/HPF) Urine Bacteria (None) Ur Culture Indicated? SARS-CoV-2 (PCR) Positive H (Negative) Influenza A (RT-PCR) Flu a negative (NEGATIVE) Influenza B (RT-PCR) Flu b negative (NEGATIVE) 09/23/21 Range/Units 10:50 WBC (4.5-11.0) X10^3/uL RBC (4.0-5.2) X10^6/uL Hgb (12.0-16.0) g/dL Hct (36-46) % MCV (80-100) fL MCH (26-34) PG MCHC (30-36) % RDW (11.6-14.8) % Plt Count (150-400) X10^3/uL Neut % (Auto) (50-75) % Lymph % (Auto) (25-40) % Foster % (Auto) (3-14) % Eos % (Auto) (2-4) % Baso % (Auto) (0-2) % Neut # (Auto) (8090-1533) /uL Lymph # (Auto) (7232-6212) /uL Foster # (Auto) (0-900) /uL Eos # (Auto) (0-450) /uL Baso # (Auto) (0-100) /uL Sodium (137-145) mmol/L Potassium (3.4-5.1) mmol/L Chloride (98-107) mmol/L Carbon Dioxide (22-32) mmol/L BUN (7-17) mg/dL Creatinine (0.52-1.04) mg/dL Estimated GFR (>60) mL/min BUN/Creatinine Ratio (6-22) Glucose (70-100) mg/dL Calcium (8.4-10.2) mg/dL Magnesium (1.6-2.3) mg/dL Total Bilirubin (0.2-1.3) mg/dL AST (14-36) IU/L ALT (<35) IU/L Alkaline Phosphatase (38-126) U/L Total Protein (6.3-8.2) g/dL Albumin (3.5-5.0) g/dL Globulin (1.7-4.1) g/dL Albumin/Globulin Ratio (1.0-2.8) Ur Bilirubin Confirm Negative (Negative) Urine RBC None seen (0-5/HPF) Urine WBC None seen (0-5/HPF) Ur Squamous Epith Cells 10-30 /hpf H (0-5/HPF) Urine Bacteria Few (2-10) H (None) Ur Culture Indicated? Culture not indicate SARS-CoV-2 (PCR) (Negative) Influenza A (RT-PCR) (NEGATIVE) Influenza B (RT-PCR) (NEGATIVE) Point of Care Testing Test Results Negative Urine Dip Bedside Urine Glucose 100 mg/dl Bedside Urine Bilirubin + 1 Bedside Urine Ketone - Negative Urine Specific [place] 1.030 Bedside Urine Occult Blood + Bedside Urine pH 6 Bedside Urine Protein + 30 Bedside Urine Urobilinogen - Negative Bedside Urine Nitrite - Negative Bedside Urine Leukocytes - Negative Esterase Imaging Data Chest x-ray: Radiologist's Impression: Launch?[address] [address] XRay Report Signed Patient: Tracy Mancini MR#: [id number] : 1975 Acct:[id number] Age/Sex: 46 / F Date of Service: 09/23/21 Loc: ED Accession Number: [id number] ?? Procedure: XR acute abdomen series Ordering Provider: Steve Crystal D.O. PROCEDURE:? XR ACUTE ABDOMEN SERIES ? INDICATIONS:? N/V/D cough, SOB ? TECHNIQUE:? One view chest and two views of the abdomen were acquired.? ? COMPARISON:? None. ? FINDINGS:? ? Surgical changes and devices:? Surgical clips are seen in right upper quadrant abdomen.? ? Chest:? Lungs are clear.? Heart size is normal.? No pleural effusions.? No pneumoperitoneum.? ? Abdomen:? Bowel gas pattern is nonobstructive.? Moderate fecal stasis in the colon is seen.? No suspicious calcifications.? Visualized solid organ contours appear normal.? ? Bones:? No suspicious bony lesions.? ? IMPRESSION:? No evidence of bowel obstruction or gross free air.? [id number] constipation.? No acute cardiopulmonary pathology. ? ? Dictated by: Jose L Dia M.D. on 09/23/2021 at 10:01 ? ? Approved by: Jose L Dia M.D. on 09/23/2021 at 10:04 ? [facility] Narrative Medical decision making narrative: Patient presents with nausea, vomiting and diarrhea. She has no respiratory complaint, no work of breathing above baseline, use of accessory muscles or hypoxemia. She has no significant pain, tolerating orals without signs of dehydration. She is COVID positive an appropriate return to work precautions were discussed. Her symptoms have been present for at least 1 week and outpatient therapies not indicated. Return precautions discussed and questions answered to her apparent satisfaction Discharge Plan Departure Patient Disposition: Home Clinical Impression: COVID Instructions: DI for COVID-19 (Suspected or Confirmed ) Activity Restrictions/Additional Instructions: *You have been diagnosed with [ COVID-19] *What to do: * per recommendations from the CDC and the [facility] Department of Health * stay home except to get medical care. Restrict activities outside your home, except for getting medical care. Do not go to work, school, or public areas. Avoid using public transportation, ride sharing, or taxis. * separate yourself from other people in your home. * call ahead before visiting your doctor * Wear a facemask * Cover your coughs and sneezes * Clean your hands often * Avoid sharing household items * Clean all high-touch services every day * Monitor your symptoms and seek prompt medical attention if your illness is worsening, particularly with difficulty in breathing. You may discontinue your isolation when: 1. You have been fever-free for at least 24 hours without the use of fever reducing medication, AND 2. Your symptoms are getting better, AND 3. At least 5 days have passed since symptoms first appeared 4. If you have fever, continue to stay home until fever resolves Individuals with laboratory confirmed COVID-19 who have not had any symptoms may discontinue home isolation when at least 5 days have passed since the date of their first COVID-19 diagnostic test and have had no subsequent illness You should notifiy any friends and family that have been in close contact *If up to date on COVID Vaccines, then they do not need to quarantine unless symptoms develop. Get tested on day 5 (or sooner if symptoms develop). Take precautions and watch for symptoms until day 10 *If NOT up to date on COVID Vaccines, then CDC recommends quarantine for at least 5 full days. Wear a well fitted mask at home if you must be around others. If they develop symptoms they should get tested. If they remain asymptomatic they should get tested on day 5. They should take precautions and monitor for symptoms until day 10. Prescriptions: New promethazine 25 mg suppository 25 mg MA Q4-6H PRN (Reason: nausea and vomiting) Qty: 12 0RF No Action gabapentin [Neurontin] 300 MG capsule 600 mg PO BID Qty: 0 0RF prednisone 20 mg tablet 20 mg PO DAILY Qty: 5 0RF Rx Instructions: administer with food or milk sumatriptan succinate 25 mg tablet 25 mg PO PRN MDD 50 mg PRN (Reason: Migraine Headache) 0RF Label Comments: TAKE 1 TAB AT ONSET OF MIGRAINE MAY REPEAT IN 1 HOUR DO NOT EXCEED 2 DOSES IN 24 HOURS lorazepam 0.5 mg tablet 0.5 mg PO BID PRN (Reason: Anxiety) 0RF sertraline 25 mg tablet 25 mg PO QPM 0RF naproxen 500 mg tablet 500 mg PO DAILY PRN (Reason: PAIN) 0RF albuterol sulfate 90 mcg/actuation Aerosol Powdr Breath Activated 1 inh INHALATION PRN PRN (Reason: Shortness Of Breath) 0RF ondansetron HCl [Zofran] 4 mg tablet 4 mg PO QID PRN (Reason: nausea and vomiting) Qty: 10 0RF dicyclomine 10 mg capsule 10 mg PO TID PRN (Reason: abdominal pain) Qty: 20 0RF Referrals: Crow Pimentel MD [Primary Care Provider] -
[2021-09-23 09:51] VITALS: BP 117/78; PULSE 72; RESP 16; TEMP 36.3; O2SAT 98; BMI 27.3
[2021-09-23 09:51] LABS: Add Manual Diff / Slide Review NO; Basophils Absolute Auto 0 /uL (0-100); Basophils Percent Auto 0.3 % (0-2); Eosinophils Absolute Auto 0 /uL (0-450); Eosinophils Percent Auto 0.1 % (2-4); Hematocrit 37.9 % (36-46); Hemoglobin 12.9 g/dL (12.0-16.0); Lymphocytes Absolute Auto 1200 /uL (1100-4500); Lymphocytes Percent Auto 15.5 % (25-40); Mean Corpuscular Hemoglobin 29.4 PG (26-34); Mean Corpuscular Volume 86.5 fL (80-100); Monocytes Absolute Auto 400 /uL (0-900); Monocytes Percent Auto 5.2 % (3-14); Neutrophils Absolute Auto 6200 /uL (1500-7000); Neutrophils Percent Auto 78.9 % (50-75); Platelet Count 274 X10^3/uL (150-400); Red Blood Cell Count 4.39 X10^6/uL (4.0-5.2); Red Cell Distribution Width 13.5 % (11.6-14.8); White Blood Cell Count 7.9 X10^3/uL (4.5-11.0)
[2021-09-23] MEDS: PANTOPRAZOLE 40 MG VIAL IV (10:00)
[2021-09-23] MEDS: SODIUM CHLORIDE 0.9% 1,000 ML 1000 ML IV (10:01)
[2021-09-23] MEDS: ONDANSETRON 4 MG/2 ML INJ IV (10:01)
[2021-09-23 10:06] LABS: Alanine Aminotransferase 16 IU/L (<35); Albumin Globulin Ratio 1.3 (1.0-2.8); Alkaline Phosphatase 78 U/L (38-126); Aspartate Aminotransferase 20 IU/L (14-36); BUN Creatinine Ratio 20.3 (6-22); Bilirubin Total 0.4 mg/dL (0.2-1.3); Blood Urea Nitrogen 15 mg/dL (7-17); Calcium 8.7 mg/dL (8.4-10.2); Carbon Dioxide 23 mmol/L (22-32); Chloride 111 mmol/L (98-107); Estimated Glomerular Filt Rate > 60 mL/min (>60); Glucose 157 mg/dL (70-100); HEMOLYSIS 17 (0-50); Magnesium 1.7 mg/dL (1.6-2.3); Sodium 141 mmol/L (137-145)
[2021-09-23 10:08] VITALS: BP 157/87; PULSE 77; O2SAT 96
[2021-09-23 10:10] VITALS: BP 157/68; PULSE 69; RESP 20; O2SAT 98
[2021-09-23 10:30] VITALS: BP 127/77; PULSE 63; RESP 21; O2SAT 97
[2021-09-23 11:00] VITALS: BP 148/80; PULSE 64; RESP 24; O2SAT 99
[2021-09-23 11:05] VITALS: PULSE 67; RESP 30; O2SAT 98
[2021-09-23 11:18] LABS: Bacteria Urine Few (2-10); Ictotest Urine Negative (Negative); RBC Urine None Seen (0-5/HPF); Squamous Epithelial Cell Urine 10-30 /HPF (0-5/HPF); WBC Urine None Seen (0-5/HPF)
[2021-09-23 11:25] LABS: Influenza A - CEPHEID Flu A NEGATIVE (NEGATIVE); Influenza B - CEPHEID Flu B NEGATIVE (NEGATIVE)
[2021-09-23 11:35] LABS: COVID-19 CEPHEID PCR (VTM/NP) POSITIVE (Negative)
--- NOTE | 2021-09-23 11:54 | PC.NURSE ---
gave a mask to patient at triage. she states she has an exemption letter. no mask worn during her stay. I did encourage her to wear a mask.
== END 2021-09-23 12:04 | disposition home or self-care (01) ==
PROVIDERS: Emergency Provider Emergency Medicine; PCP Family Medicine
DX: U07.1 COVID-19 (principal); R11.2 Nausea with vomiting, unspecified; R19.7 Diarrhea, unspecified; R10.84 Generalized abdominal pain
CPT/HCPCS: 36415; 74022; 80053; 81003; 81015; 81025; 83735; 85025; 87086; 87635; 96361; 96374; 96375; 99284; C9803; C9113; J2405